=== PATIENT | female | born 1935 | race American Indian/Alaskan Native ===

== ENCOUNTER 2018-12-08 16:16 | Inpatient (IN) | payer MEDICARE ==
--- NOTE | 2018-12-08 17:00 | Emergency Department Report ---
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
[2018-12-08 17:36] LABS: Basophils # (Auto) 0.1 K/mm3 (0.0-0.1); Basophils % (Auto) 1.4 % (0.0-1.8); Eosinophils # (Auto) 0.1 K/mm3 (0.0-0.4); Eosinophils % (Auto) 1.4 % (0.0-4.3); Hematocrit 40.1 % (30.3-42.9); Hemoglobin 14.1 gm/dl (10.1-14.3); Lymphocytes # (Auto) 2.4 K/mm3 (1.2-5.4); Lymphocytes % (Auto) 32.1 % (13.4-35.0); Mean Corpuscular HGB Conc 35 % (30-34); Mean Corpuscular Volume 86 fl (79-97); Monocytes # (Auto) 0.8 K/mm3 (0.0-0.8); Monocytes % (Auto) 10.8 % (0.0-7.3); Platelet Count 339 K/mm3 (140-440); Red Blood Count 4.68 M/mm3 (3.65-5.03); Red Cell Distribution Width 16.2 % (13.2-15.2)
[2018-12-08 17:46] LABS: INR 0.96 (0.87-1.13)
[2018-12-08 17:57] LABS: Alanine Aminotransferase 8 units/L (7-56); Albumin 4.3 g/dL (3.9-5); BUN/Creatinine Ratio 34; Blood Urea Nitrogen 58 mg/dL (7-17); Calcium 9.6 mg/dL (8.4-10.2); Hemolysis Index 1
[2018-12-08] MEDS ORDERED: PEPCID PO ONE (17:59)
[2018-12-08] MEDS ORDERED: ALUM-MAG HYDROX-SIMETH 200-200-20MG/5ML PO ONE (17:59)
[2018-12-08] MEDS ORDERED: TYLENOL PO ONE (17:59)
[2018-12-08] MEDS ORDERED: NITROSTAT SL PRN (17:59)
[2018-12-08] MEDS ORDERED: CARAFATE PO ONE (17:59)
--- NOTE | 2018-12-08 18:00 | Emergency Department Report ---
ED Chest Pain HPI - General Chief Complaint: Dyspnea/Respdistress Stated Complaint: JON Time Seen by Provider: 12/08/18 16:52 Source: patient, EMS (ems notes not available at time of chart dictation), RN notes reviewed, old records reviewed Mode of arrival: Ambulatory Limitations: No Limitations - History of Present Illness Initial Comments: Primary care Dr.: Dr. Edouard Cardiology: Dr. Arauz Past medical history: Asthma, stroke, diabetes, hypertension, renal insufficiency, heart disease, stents 4. Chronic back pain, chronic arthritis, takes Plavix. This is an 83-year-old female. The patient is sent to the emergency room by her soda jerker. Patient complains of left-sided chest pain, shortness of breath, for a few weeks. She denies DVT, pulmonary embolus risk factors. Her chest pain is left-sided, aching, does not radiate anywhere, does not have exacerbating or relieving factors. She reports she initially presented to her primary care physician for these complaints, who initially advised emergency room presentation, but the patient declined, she was therefore given outpatient diuretics, including presumably Lasix, and metalozone. She reports compliance with these medications, and reports that she still feels short of breath. She also endorses chronic lumbosacral back pain, which has been present for years, she was previously receiving cortisone injections for this, but her pain specialist. This because she was having glycemic dysregulation. MD Complaint: chest pain -: Gradual Onset: during rest Pain Location: left chest Quality: aching Consistency: intermittent Improves With: nothing Worsens With: nothing Aspirin use within the Past 7 Days: (0) No (patient takes Plavix, not aspirin) - Related Data On Oral Contraceptives: No Home Medications Medication Instructions Recorded Confirmed Last Taken Cholecalciferol (Vitd3)/Vit K2 50,000 mg PO DAILY 12/09/18 12/09/18 12/08/18 19:00 Clonidine 0.1 mg PO BID 12/09/18 12/09/18 12/08/18 19:00 Coreg 12.5 mg PO BID 12/09/18 12/09/18 12/08/18 19:00 Folic Acid 1 mg PO DAILY 12/09/18 12/09/18 12/08/18 19:00 Lantus 60 units QAM 12/09/18 12/09/18 12/08/18 18:00 Metolazone 5 mg PO BID 12/09/18 12/09/18 12/08/18 19:00 Plavix 75 mg PO DAILY 12/09/18 12/09/18 12/08/18 19:00 Potassium 20 mg PO DAILY 12/09/18 12/09/18 12/08/18 19:00 Procardia Xl 30 mg PO DAILY 12/09/18 12/09/18 12/08/18 20:00 Symbicort 80-4.5 Mcg Inhaler 2 inhalation PO BID 12/09/18 12/09/18 12/08/18 20:00 Torsemide 20 mg PO BID 12/09/18 12/09/18 12/08/18 21:00 Trelegy Ellipta 100-62.5-25 2 mg PO DAILY 12/09/18 12/09/18 12/08/18 21:00 Allergies Allergy/AdvReac Type Severity Reaction Status Date / Time hydrocodone AdvReac Vomiting Verified 12/08/18 16:23 Heart Score - HEART Score History: Moderately suspicious EKG: Non-specific Age: > 65 Risk factors: > 3 risk factors or hx of atherosclerotic disease Troponin: < normal limit HEART Score: 6 - Critical Actions Critical Actions: 4-6 pts:12-16.6% risk of adverse cardiac event. Should be admitted ED Review of Systems ROS: Stated complaint: JON Other details as noted in HPI Constitutional: malaise. denies: fever Eyes: denies: eye discharge ENT: denies: epistaxis Respiratory: shortness of breath Cardiovascular: chest pain Musculoskeletal: back pain, arthralgia Skin: denies: lesions Neurological: weakness Psychiatric: anxiety ED Past Medical Hx - Past Medical History Hx Hypertension: Yes Hx CVA: Yes Hx Diabetes: Yes Hx Renal Disease: Yes Hx Asthma: Yes - Surgical History Hx Coronary Stent: Yes (x4) Hx Cholecystectomy: Yes Additional Surgical History: polps in throat, breast reduction, tubiligation - Social History Smoking Status: Never Smoker Substance Use Type: None - Medications Home Medications: Home Medications Medication Instructions Recorded Confirmed Last Taken Type Cholecalciferol (Vitd3)/Vit K2 50,000 mg PO DAILY 12/09/18 12/09/18 12/08/18 19:00 History Clonidine 0.1 mg PO BID 04/12/09/18 12/08/18 19:00 History Coreg 12.5 mg PO BID 12/09/18 12/09/18 12/08/18 19:00 History Folic Acid 1 mg PO DAILY 12/09/18 12/09/18 12/08/18 19:00 History Lantus 60 units QAM 12/09/18 12/09/18 12/08/18 18:00 History Metolazone 5 mg PO BID 12/09/18 12/09/18 12/08/18 19:00 History Plavix 75 mg PO DAILY 12/09/18 12/09/18 12/08/18 19:00 History Potassium 20 mg PO DAILY 12/09/18 12/09/18 12/08/18 19:00 History Procardia Xl 30 mg PO DAILY 12/09/18 12/09/18 12/08/18 20:00 History Symbicort 80-4.5 Mcg Inhaler 2 inhalation PO BID 12/09/18 12/09/18 12/08/18 20:00 History Torsemide 20 mg PO BID 12/09/18 12/09/18 12/08/18 21:00 History Trelegy Ellipta 100-62.5-25 2 mg PO DAILY 12/09/18 12/09/18 12/08/18 21:00 History ED Physical Exam - General Limitations: No Limitations General appearance: alert, in no apparent distress - Head Head exam: Present: atraumatic, normocephalic - Eye Eye exam: Present: normal appearance, EOMI. Absent: nystagmus - ENT ENT exam: Present: normal exam, normal orophraynx, mucous membranes moist, normal external ear exam - Neck Neck exam: Present: normal inspection, full ROM. Absent: tenderness, meningismus - Respiratory Respiratory exam: Present: decreased breath sounds. Absent: respiratory distress - Cardiovascular Cardiovascular Exam: Present: regular rate, normal rhythm, normal heart sounds. Absent: bradycardia, tachycardia, irregular rhythm, systolic murmur, diastolic murmur, rubs, gallop - GI/Abdominal GI/Abdominal exam: Present: soft. Absent: distended, tenderness, guarding, rebound, rigid, pulsatile mass - Extremities Exam Extremities exam: Present: normal inspection, full ROM, other (2+ pulses noted in the bilateral upper, lower extremities. Compartments soft. No long bony tenderness. The pelvis is stable.). Absent: calf tenderness - Back Exam Back exam: Present: normal inspection, full ROM. Absent: paraspinal tenderness, vertebral tenderness - Neurological Exam Neurological exam: Present: alert, other (Extraocular movements intact. Tongue midline. No facial droop. Facial sensation intact to light touch in the V1, V2, V3 distribution bilaterally. 5 and 5 strength in 4 extremities.. Sensation is intact to light touch in 4 extremities.). Absent: motor sensory deficit - Psychiatric Psychiatric exam: Present: normal affect, normal mood - Skin Skin exam: Present: warm, dry, intact, normal color. Absent: rash ED Course Vital Signs 12/08/18 12/08/18 12/08/18 16:59 18:00 18:14 Temperature 97.3 F L Pulse Rate 70 75 Respiratory 20 18 21 Rate Blood Pressure 110/91 O2 Sat by Pulse 97 Oximetry 12/08/18 12/08/18 12/08/18 18:15 18:30 18:46 Temperature Pulse Rate 75 68 65 Respiratory 17 17 12 Rate Blood Pressure 137/65 135/60 O2 Sat by Pulse 99 96 100 Oximetry 12/08/18 12/08/18 12/08/18 19:00 19:16 19:30 Temperature Pulse Rate 72 73 76 Respiratory 20 20 14 Rate Blood Pressure 131/59 131/59 129/61 O2 Sat by Pulse 99 99 97 Oximetry 12/08/18 12/08/18 12/08/18 19:50 20:00 20:10 Temperature Pulse Rate 58 L 69 63 Respiratory 13 11 L 14 Rate Blood Pressure 131/59 127/55 127/55 O2 Sat by Pulse 98 99 100 Oximetry 12/08/18 20:14 Temperature Pulse Rate Respiratory 18 Rate Blood Pressure O2 Sat by Pulse 96 Oximetry - Reevaluation(s) Reevaluation #1: 12/08/18 18:29 Differential diagnosis, including not limited to: GERD, gastritis, hiatal her opal, costochondritis, acute coronary syndrome, pulmonary embolus, pneumonia, mechanical back pain Assessment and plan: 83-year-old female, known history of stents, diabetes and hypertension, renal insufficiency with chest pain and shortness of breath. Patient clinically does not appear to be floridly fluid overloaded. She does not have significant crackles or rales. She is saturating at 100% on room air. X-ray of the chest suggest pulmonary vascular congestion. Has no pulmonary embolus or DVT risk factors, and is low risk by well's criteria. Patient has not recently had any cardiac risk stratification. Case discussed with covering soda jerker, Dr. Cade, who agrees to follow in consultation. D-dimer sent, we will admit the patient to the medical service for high risk cardiac risk stratification. Lasix ordered. Reevaluation #2: 12/08/18 19:02 we will defer to the inpatient team to follow up on v/q scan FERNANDO score - Fernando Score Age > 65: (1) Yes Aspirin use within the Past 7 Days: (0) No 3 or more CAD Risk Factors: (1) Yes 2 or more Angina events in past 24 hrs: (0) No Known CAD with more than 50% Stenosis: (0) No Elevated Cardiac Markers: (0) No ST Deviation Greater than 0.5mm: (0) No FERNANDO Score: 2 ED Medical Decision Making - Lab Data Result diagrams: 12/09/18 05:23 12/09/18 05:23 Vital Signs 12/08/18 16:59 Temperature 97.3 F L Pulse Rate 70 Respiratory 20 Rate Blood Pressure 110/91 O2 Sat by Pulse 97 Oximetry Lab Results 12/08/18 12/08/18 12/08/18 Range/Units 17:16 17:16 17:16 WBC 7.6 (4.5-11.0) K/mm3 RBC 4.68 (3.65-5.03) M/mm3 Hgb 14.1 (10.1-14.3) gm/dl Hct 40.1 (30.3-42.9) % MCV 86 (79-97) fl MCH 30 (28-32) pg MCHC 35 H (30-34) % RDW 16.2 H (13.2-15.2) % Plt Count 339 (140-440) K/mm3 Lymph % (Auto) 32.1 (13.4-35.0) % [place] % (Auto) 10.8 H (0.0-7.3) % Eos % (Auto) 1.4 (0.0-4.3) % Baso % (Auto) 1.4 (0.0-1.8) % Lymph # 2.4 (1.2-5.4) K/mm3 [place] # 0.8 (0.0-0.8) K/mm3 Eos # 0.1 (0.0-0.4) K/mm3 Baso # 0.1 (0.0-0.1) K/mm3 Seg Neutrophils % 54.3 (40.0-70.0) % Seg Neutrophils # 4.1 (1.8-7.7) K/mm3 PT 13.4 (12.2-14.9) Sec. INR 0.96 (0.87-1.13) APTT 27.0 (24.2-36.6) Sec. Sodium 138 (137-145) mmol/L Potassium 3.6 (3.6-5.0) mmol/L Chloride 93.4 L (98-107) mmol/L Carbon Dioxide 30 (22-30) mmol/L Anion Gap 18 mmol/L BUN 58 H (7-17) mg/dL Creatinine 1.7 H (0.7-1.2) mg/dL Estimated GFR 35 ml/min BUN/Creatinine Ratio 34 % Glucose 155 H (65-100) mg/dL Calcium 9.6 (8.4-10.2) mg/dL Total Bilirubin 0.30 (0.1-1.2) mg/dL AST 10 (5-40) units/L ALT 8 (7-56) units/L Alkaline Phosphatase 82 (35-129) units/L Troponin T < 0.010 (0.00-0.029) ng/mL NT-Pro-B Natriuret Pep (0-900) pg/mL Total Protein 8.3 H (6.3-8.2) g/dL Albumin 4.3 (3.9-5) g/dL Albumin/Globulin Ratio 1.1 % 12/08/18 Range/Units 17:16 WBC (4.5-11.0) K/mm3 RBC (3.65-5.03) M/mm3 Hgb (10.1-14.3) gm/dl Hct (30.3-42.9) % MCV (79-97) fl MCH (28-32) pg MCHC (30-34) % RDW (13.2-15.2) % Plt Count (140-440) K/mm3 Lymph % (Auto) (13.4-35.0) % [place] % (Auto) (0.0-7.3) % Eos % (Auto) (0.0-4.3) % Baso % (Auto) (0.0-1.8) % Lymph # (1.2-5.4) K/mm3 [place] # (0.0-0.8) K/mm3 Eos # (0.0-0.4) K/mm3 Baso # (0.0-0.1) K/mm3 Seg Neutrophils % (40.0-70.0) % Seg Neutrophils # (1.8-7.7) K/mm3 PT (12.2-14.9) Sec. INR (0.87-1.13) APTT (24.2-36.6) Sec. Sodium (137-145) mmol/L Potassium (3.6-5.0) mmol/L Chloride (98-107) mmol/L Carbon Dioxide (22-30) mmol/L Anion Gap mmol/L BUN (7-17) mg/dL Creatinine (0.7-1.2) mg/dL Estimated GFR ml/min BUN/Creatinine Ratio % Glucose (65-100) mg/dL Calcium (8.4-10.2) mg/dL Total Bilirubin (0.1-1.2) mg/dL AST (5-40) units/L ALT (7-56) units/L Alkaline Phosphatase (35-129) units/L Troponin T (0.00-0.029) ng/mL NT-Pro-B Natriuret Pep 585.6 (0-900) pg/mL Total Protein (6.3-8.2) g/dL Albumin (3.9-5) g/dL Albumin/Globulin Ratio % - EKG Data -: EKG Interpreted by Me EKG shows normal: sinus rhythm Rate: normal - EKG Data 12/08/18 18:28 EKG shows a sinus rhythm, rightward axis, right bundle branch block, QTC 497 ms, sinus arrhythmia, low voltage, abnormal EKG, as is not consistent with ST elevation myocardial infarction. There is no prior for comparison. - Radiology Data Radiology results: report reviewed, image reviewed interpreted by me: X-ray of the chest shows pulmonary vascular congestion. Print Report Referring Physician: LILIANA TAN Patient Name: ARLIN VEGA Date of : 1935 Sex: Female Report Date: 2018-12-08 Report Status: Finalized Findings [facility] [address] [place] [address] XRay Report Signed Patient: ARLIN VEGA MR#: [id number] : 1935 Acct:[id number] Age/Sex: 83 / F ADM Date: 12/08/18 Loc: ED Attending Dr: Ordering Physician: LILIANA TAN MD Date of Service: 12/08/18 Procedure(s): XR chest 1V ap Accession Number(s): [id number] cc: LILIANA TAN MD Fluoro Time In Minutes: PROCEDURE: XR CHEST 1V AP HISTORY: cp dyspnea FINDINGS: Single frontal view of the chest was acquired. There is cardiomegaly and mild pulmonary edema. There is no acute consolidative pulmonary infiltrate. IMPRESSION: Cardiomegaly and mild pulmonary edema This document is electronically signed by Luis Manuel White MD., December 08 2018 06:31:13 PM ET Transcribed By: KAREN Dictated By: LUIS MANUEL WHITE MD Electronically Authenticated By: LUIS MANUEL WHITE MD Signed Date/Time: 12/08/18 1833 Critical care attestation.: If time is entered above; I have spent that time in minutes in the direct care of this critically ill patient, excluding procedure time. ED Disposition Clinical Impression: History of chest pain, History of shortness of breath Disposition: 09 OP ADMIT IP TO THIS HOSP Is pt being admited?: Yes Does the pt Need Aspirin: Yes Condition: Good
[2018-12-08] MEDS ORDERED: LASIX IV ONE (18:28)
[2018-12-08] MEDS ORDERED: BABY ASPIRIN PO ONE (18:32)
--- NOTE | 2018-12-08 18:33 | XRay Report ---
PROCEDURE: XR CHEST 1V AP HISTORY: cp dyspnea FINDINGS: Single frontal view of the chest was acquired. There is cardiomegaly and mild pulmonary eli ma. There is no acute consolidative pulmonary infiltrate. IMPRESSION: Cardiomegaly and mild pulmonary edema This document is electronically signed by Luis Manuel White MD., December 08 2018 06:31:13 PM ET
--- NOTE | 2018-12-08 21:54 | Nuclear Medicine Report ---
PROCEDURE: Nuclear medicine ventilation and perfusion lung scan. TECHNIQUE: Ventilation imaging was done in the posterior projection using 12.2 mCi of xenon-133 gas. Perfusion imaging was done in multiple projections using 5.2 mCi of technetium 90 9M MAA. HISTORY: Chest pain, dyspnea. COMPARISONS: Comparison chest radiograph 12/08/2018. FINDINGS: There is symmetrical, homogeneous ventilation bilaterally. There is no trapping of xenon gas during t he washout phase of the study. The perfusion images are also homogeneous. The lung scan is normal and caries an extremely low probability of pulmonary embolism. IMPRESSION: Normal lung scan. This document is electronically signed by Myles Noland MD., December 08 2018 09:52:33 PM ET
--- NOTE | 2018-12-08 21:55 | History and Physical Report ---
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 Her chest pain is left- sided, aching, does not radiate anywhere, does not have exacerbating or relieving factors. She reports she initially presented to her primary care physician for these complaints, who initially advised emergency room presentation, but the patient declined, she was therefore given outpatient diuretics, Also SOB on minimal exertion.Orthopnea present. Past Medical History Hypertension: Yes CVA: Yes Diabetes: Yes Renal Disease: Yes Asthma: Yes Peripheral neuropathy Surgical History Hx Coronary Stent: Yes (x4) Hx Cholecystectomy: Yes Additional Surgical History: polyps in throat, breast reduction, tubiligation Social History Smoking Status: Never Smoker Substance Use Type: None Review of systems ROS: Stated complaint: JON Other details as noted in HPI Constitutional: malaise. denies: fever Eyes: denies: eye discharge ENT: denies: epistaxis Respiratory: shortness of breath Cardiovascular: chest pain Musculoskeletal: back pain, arthralgia Skin: denies: lesions Neurological: weakness Psychiatric: anxiety Medications and Allergies Allergies Allergy/AdvReac Type Severity Reaction Status Date / Time hydrocodone AdvReac Vomiting Verified 12/08/18 16:23 Home Medications Medication Instructions Recorded Confirmed Last Taken Type Unobtainable 12/08/18 12/08/18 Unknown History Active Meds: Active Medications Nitroglycerin (Nitrostat) 0.4 mg SL .Q5MIN PRN PRN Reason: Chest Pain Exam - Constitutional Vitals: Temp Pulse Resp BP Pulse Ox 97.3 F L 63 14 127/55 100 12/08/18 16:59 12/08/18 20:10 12/08/18 20:10 12/08/18 20:10 12/08/18 20:10 General appearance: Present: no acute distress, well-nourished - EENT Eyes: Present: PERRL ENT: hearing intact, clear oral mucosa - Neck Neck: Present: supple, normal ROM - Respiratory Respiratory effort: normal Respiratory: bilateral: CTA - Cardiovascular Heart rate: 68 Rhythm: regular Heart Sounds: Present: S1 & S2. Absent: rub, click - Extremities Extremities: no ischemia, pulses intact, pulses symmetrical, No edema Peripheral Pulses: within normal limits - Abdominal General gastrointestinal: Present: soft, non-tender, non-distended, normal bowel sounds Female genitourinary: Present: normal - Rectal Rectal Exam: deferred - Integumentary Integumentary: Present: clear, warm, dry - Musculoskeletal Musculoskeletal: gait normal, strength equal bilaterally - Psychiatric Psychiatric: appropriate mood/affect, intact judgment & insight - Neurologic Neurologic: CNII-XII intact, moves all extremities - Allied Health Allied health notes reviewed: nursing, case management Results - Labs CBC & Chem 7: 12/09/18 05:23 12/09/18 05:23 Labs: Laboratory Last Values WBC 7.6 K/mm3 (4.5-11.0) 12/08/18 17:16 RBC 4.68 M/mm3 (3.65-5.03) 12/08/18 17:16 Hgb 14.1 gm/dl (10.1-14.3) 12/08/18 17:16 Hct 40.1 % (30.3-42.9) 12/08/18 17:16 MCV 86 fl (79-97) 12/08/18 17:16 MCH 30 pg (28-32) 12/08/18 17:16 MCHC 35 % (30-34) H 12/08/18 17:16 RDW 16.2 % (13.2-15.2) H 12/08/18 17:16 Plt Count 339 K/mm3 (140-440) 12/08/18 17:16 Lymph % (Auto) 32.1 % (13.4-35.0) 12/08/18 17:16 [place] % (Auto) 10.8 % (0.0-7.3) H 12/08/18 17:16 Eos % (Auto) 1.4 % (0.0-4.3) 12/08/18 17:16 Baso % (Auto) 1.4 % (0.0-1.8) 12/08/18 17:16 Lymph # 2.4 K/mm3 (1.2-5.4) 12/08/18 17:16 [place] # 0.8 K/mm3 (0.0-0.8) 12/08/18 17:16 Eos # 0.1 K/mm3 (0.0-0.4) 12/08/18 17:16 Baso # 0.1 K/mm3 (0.0-0.1) 12/08/18 17:16 Seg Neutrophils % 54.3 % (40.0-70.0) 12/08/18 17:16 Seg Neutrophils # 4.1 K/mm3 (1.8-7.7) 12/08/18 17:16 PT 13.4 Sec. (12.2-14.9) 12/08/18 17:16 INR 0.96 (0.87-1.13) 12/08/18 17:16 APTT 27.0 Sec. (24.2-36.6) 12/08/18 17:16 D-Dimer 1048 ng/mlDDU (0-234) H 12/08/18 18:12 Sodium 138 mmol/L (137-145) 12/08/18 17:16 Potassium 3.6 mmol/L (3.6-5.0) 12/08/18 17:16 Chloride 93.4 mmol/L (98-107) L 12/08/18 17:16 Carbon Dioxide 30 mmol/L (22-30) 12/08/18 17:16 Anion Gap 18 mmol/L 12/08/18 17:16 BUN 58 mg/dL (7-17) H 12/08/18 17:16 Creatinine 1.7 mg/dL (0.7-1.2) H 12/08/18 17:16 Estimated GFR 35 ml/min 12/08/18 17:16 BUN/Creatinine Ratio 34 % 12/08/18 17:16 Glucose 155 mg/dL (65-100) H 12/08/18 17:16 Calcium 9.6 mg/dL (8.4-10.2) 12/08/18 17:16 Total Bilirubin 0.30 mg/dL (0.1-1.2) 12/08/18 17:16 AST 10 units/L (5-40) 12/08/18 17:16 ALT 8 units/L (7-56) 12/08/18 17:16 Alkaline Phosphatase 82 units/L (35-129) 12/08/18 17:16 Troponin T < 0.010 ng/mL (0.00-0.029) 12/08/18 17:16 NT-Pro-B Natriuret Pep 585.6 pg/mL (0-900) 12/08/18 17:16 Total Protein 8.3 g/dL (6.3-8.2) H 12/08/18 17:16 Albumin 4.3 g/dL (3.9-5) 12/08/18 17:16 Albumin/Globulin Ratio 1.1 % 12/08/18 17:16 Short CBC 12/08/18 12/09/18 Range/Units 17:16 05:23 WBC 7.6 5.3 (4.5-11.0) K/mm3 Hgb 14.1 13.3 (10.1-14.3) gm/dl Hct 40.1 39.5 (30.3-42.9) % Plt Count 339 330 (140-440) K/mm3 BMP 12/08/18 12/09/18 17:16 05:23 Sodium 138 135 L Potassium 3.6 3.3 L Chloride 93.4 L 92.3 L Carbon Dioxide 30 26 BUN 58 H 58 H Creatinine 1.7 H 1.6 H Glucose 155 H 415 H Calcium 9.6 9.1 Cardiac Enzymes 12/08/18 12/08/18 12/08/18 Range/Units 17:16 21:53 22:50 Troponin T < 0.010 < 0.010 < 0.010 (0.00-0.029) ng/mL 12/09/18 Range/Units 05:23 Troponin T < 0.010 (0.00-0.029) ng/mL Liver Function 12/08/18 12/09/18 Range/Units 17:16 05:23 Total Bilirubin 0.30 0.20 (0.1-1.2) mg/dL AST 10 12 (5-40) units/L ALT 8 9 (7-56) units/L Alkaline Phosphatase 82 82 (35-129) units/L Albumin 4.3 3.8 L (3.9-5) g/dL - Imaging and Cardiology EKG: report reviewed (NSR 68/min RBBB) Chest x-ray: report reviewed (Cardimegaly and mild pulmonary edema) Imaging and Cardiology: V/q Scan IMPRESSION: Normal lung scan. Assessment and Plan Advance Directives: Yes (Full code) VTE prophylaxis?: Chemical - Patient Problems (1) Acute exacerbation of CHF (congestive heart failure) Current Visit: Yes Status: Acute Qualifiers: Heart failure type: combined systolic and diastolic Qualified Code(s): I50.43 - Acute on chronic combined systolic (congestive) and diastolic (congestive) heart failure Plan to address problem: IV Lasix for now Daily weights and I?O 's ECHO for EF Cardiology consult (2) JANEE (acute kidney injury) Current Visit: Yes Status: Acute Plan to address problem: Nephrolgy consulted b/c patient is also initiated on IV Lasix (3) Chest pain Current Visit: Yes Status: Acute Plan to address problem: t pain r/o MA protocol seriial Troponins Lexiscan in AM V/q scan negative (4) HTN (hypertension) Current Visit: Yes Status: Chronic Qualifiers: Hypertension type: essential hypertension Qualified Code(s): I10 - Esse ntial (primary) hypertension Plan to address problem: Cont antihypertensives (5) Peripheral neuropathy Current Visit: Yes Status: Chronic Qualifiers: Peripheral neuropathy type: polyneuropathy, unspecified Qualified Code(s): G62.9 - Polyneuropathy, unspecified Plan to address problem: Gabapentin (6) T2DM (type 2 diabetes mellitus) Current Visit: Yes Status: Chronic Qualifiers: Diabetes mellitus 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
[2018-12-08] MEDS ORDERED: ZOFRAN IV PRN (21:56)
[2018-12-08] MEDS ORDERED: DILAUDID IV PRN (21:56)
[2018-12-08] MEDS ORDERED: SODIUM CHLORIDE FLUSH SYRINGE 10 ML IV PRN (21:56)
[2018-12-08] MEDS ORDERED: TYLENOL PO PRN (21:56)
[2018-12-08] MEDS: SODIUM CHLORIDE FLUSH SYRINGE 10 ML IV SCH (22:00)
[2018-12-08] MEDS ORDERED: PEPCID PO SCH (22:00)
[2018-12-09] MEDS: PERCOCET 5/325 PO PRN (05:42)
[2018-12-09 06:23] LABS: Basophils % (Auto) 0.8 % (0.0-1.8); Hematocrit 39.5 % (30.3-42.9); Hemoglobin 13.3 gm/dl (10.1-14.3); Lymphocytes % (Auto) 36.6 % (13.4-35.0); Mean Corpuscular HGB Conc 34 % (30-34); Mean Corpuscular Volume 87 fl (79-97); Monocytes % (Auto) 9.3 % (0.0-7.3); Platelet Count 330 K/mm3 (140-440); Red Blood Count 4.53 M/mm3 (3.65-5.03); Red Cell Distribution Width 15.9 % (13.2-15.2)
[2018-12-09 06:24] LABS: Eosinophils # (Auto) 0.1 K/mm3 (0.0-0.4); Lymphocytes # (Auto) 1.9 K/mm3 (1.2-5.4); Monocytes # (Auto) 0.5 K/mm3 (0.0-0.8)
[2018-12-09 06:41] LABS: Alanine Aminotransferase 9 units/L (7-56); Albumin 3.8 g/dL (3.9-5); BUN/Creatinine Ratio 36; Blood Urea Nitrogen 58 mg/dL (7-17); Calcium 9.1 mg/dL (8.4-10.2); Hemolysis Index 20
--- NOTE | 2018-12-09 08:32 | Consultation ---
History of Present Illness - Reason for Consult Consult date: 12/09/18 acute renal failure Medications and Allergies Allergies Allergy/AdvReac Type Severity Reaction Status Date / Time hydrocodone AdvReac Vomiting Verified 12/08/18 16:23 Home Medications Medication Instructions Recorded Confirmed Last Taken Type Unobtainable 12/08/18 12/08/18 Unknown History Active Meds: Active Medications Acetaminophen (Tylenol) 650 mg PO Q4H PRN PRN Reason: Pain MILD(1-3)/Fever >100.5/BECKER Carvedilol (Coreg) 3.125 mg PO BID [facility] Famotidine (Pepcid) 10 mg PO BID [facility] Furosemide (Lasix) 40 mg IV QDAY [facility] Gabapentin (Neurontin) 100 mg PO Q8HR [facility] Hydromorphone HCl (Dilaudid) 0.5 mg IV Q3H PRN PRN Reason: Pain , Severe (7-10) Insulin Glargine (Lantus) 15 units SUB-Q QHS [facility] Insulin Human Lispro (Humalog) 0 unit SUB-Q ACHS [facility]; Protocol Insulin Human Lispro (Humalog) 6 unit SUB-Q AC [facility] Losartan Potassium (Cozaar) 100 mg PO QDAY [facility] Nitroglycerin (Nitrostat) 0.4 mg SL .Q5MIN PRN PRN Reason: Chest Pain Ondansetron HCl (Zofran) 4 mg IV Q8H PRN PRN Reason: Nausea And Vomiting Oxycodone/Acetaminophen (Percocet 5/325) 1 tab PO Q6H PRN PRN Reason: Pain, Moderate (4-6) Last Admin: 12/09/18 05:42 Dose: 1 tab Documented by: Potassium Chloride (K-Dur) 40 meq PO QDAY [facility] Sodium Chloride (Sodium Chloride Flush Syringe 10 Ml) 10 ml IV BID [facility] Last Admin: 12/08/18 22:00 Dose: 10 ml Documented by: Sodium Chloride (Sodium Chloride Flush Syringe 10 Ml) 10 ml IV PRN PRN PRN Reason: LINE FLUSH Exam - Vital Signs Vital signs: Vital Signs Temp Pulse Resp BP Pulse Ox 97.3 F L 70 20 110/91 97 12/08/18 16:59 12/08/18 16:59 12/08/18 16:59 12/08/18 16:59 12/08/18 16:59 Results - Lab Results 12/09/18 05:23 12/09/18 05:23 Most recent lab results Calcium 9.1 mg/dL (8.4-10.2) 12/09/18 05:23
[2018-12-09] MEDS: HumaLOG SUB-Q SCH ×7 (08:43→22:01)
[2018-12-09] MEDS ORDERED: LASIX IV SCH (10:00)
[2018-12-09] MEDS ORDERED: K-DUR PO SCH (10:00)
--- NOTE | 2018-12-09 10:16 | Consultation ---
History of Present Illness Consult date: 12/09/18 Requesting physician: POP CONROY Consult reason: congestive heart failure History of present illness: The pt is an 83 YO female with a past medical history of CAD s/p PCI, HTN, HLP, DM, CKD, asthma, sleep apnea. She is regularly followed in our office by Dr. aFye. She presented to our office yesterday for unscheduled visit and was seen by Dr. Glen Arauz. She c/o dyspnea and BLE edema and was referred to [facility] for management of acutely decompensated HF. She states that for the past several weeks, she has been experiencing progressively worsening and BLE swelling. She reports about 1 week ago, she received one dose of IV lasix from her PCP and lost about 10 lbs but her symptoms persisted. She also c/o an intermittent left- sided tugging chest discomfort. [facility] 08/2007 with PCI of RCA. Lexiscan MPI stress test done 09/2016 was negative. Echo done 02/2018 showed normal LV function, no significant abnormalities. Past History Past Medical History: CAD, diabetes, hypertension, hyperlipidemia, other (asthma; tutu) Past Surgical History: PTCA Social history: denies: smoking, alcohol abuse, prescription drug abuse Medications and Allergies Allergies Allergy/AdvReac Type Severity Reaction Status Date / Time hydrocodone AdvReac Vomiting Verified 12/08/18 16:23 Home Medications Medication Instructions Recorded Confirmed Last Taken Type Lantus 60 units QAM 12/09/18 12/09/18 Unknown History Active Meds: Active Medications Acetaminophen (Tylenol) 650 mg PO Q4H PRN PRN Reason: Pain MILD(1-3)/Fever >100.5/BECKER Carvedilol (Coreg) 3.125 mg PO BID [facility] Famotidine (Pepcid) 10 mg PO BID [facility] Furosemide (Lasix) 40 mg IV QDAY [facility] Gabapentin (Neurontin) 100 mg PO Q8HR [facility] Hydromorphone HCl (Dilaudid) 0.5 mg IV Q3H PRN PRN Reason: Pain , Severe (7-10) Insulin Glargine (Lantus) 15 units SUB-Q QHS [facility] Insulin Human Lispro (Humalog) 0 unit SUB-Q ACHS [facility]; Protocol Last Admin: 12/09/18 08:43 Dose: 6 unit Documented by: Insulin Human Lispro (Humalog) 6 unit SUB-Q AC [facility] Last Admin: 12/09/18 08:43 Dose: 6 unit Documented by: Losartan Potassium (Cozaar) 100 mg PO QDAY [facility] Nitroglycerin (Nitrostat) 0.4 mg SL .Q5MIN PRN PRN Reason: Chest Pain Ondansetron HCl (Zofran) 4 mg IV Q8H PRN PRN Reason: Nausea And Vomiting Oxycodone/Acetaminophen (Percocet 5/325) 1 tab PO Q6H PRN PRN Reason: Pain, Moderate (4-6) Last Admin: 12/09/18 05:42 Dose: 1 tab Documented by: Potassium Chloride (K-Dur) 40 meq PO QDAY [facility] Sodium Chloride (Sodium Chloride Flush Syringe 10 Ml) 10 ml IV BID [facility] Last Admin: 12/08/18 22:00 Dose: 10 ml Documented by: Sodium Chloride (Sodium Chloride Flush Syringe 10 Ml) 10 ml IV PRN PRN PRN Reason: LINE FLUSH Review of Systems Constitutional: weight gain, no fever, no chills, no sweats Ears, nose, mouth and throat: no ear pain, no nose pain, no sinus pressure, no sinus pain Cardiovascular: chest pain, orthopnea, edema, shortness of breath, dyspnea on exertion, leg edema, no palpitations, no rapid/irregular heart beat, no syncope, no lightheadedness Respiratory: shortness of breath, dyspnea on exertion, no cough, no congestion, no wheezing, no pain on inspiration Gastrointestinal: no abdominal pain, no nausea, no vomiting, no diarrhea, no constipation, no change in bowel habits Genitourinary Female: no pelvic pain, no flank pain, no dysuria, no urinary frequency, no urgency Musculoskeletal: no neck stiffness, no neck pain, no shooting arm pain, no arm numbness/tingling, no low back pain, no shooting leg pain Integumentary: no rash, no pruritis, no redness, no sores, no wounds Neurological: no head injury, no paralysis, no weakness, no parathesias, no numbness, no tingling, no seizures, no syncope Psychiatric: no anxiety Endocrine: no cold intolerance, no heat intolerance Hematologic/Lymphatic: no easy bruising, no easy bleeding Allergic/Immunologic: no urticaria, no wheezing Physical Examination Vital Signs Temp Pulse Resp BP Pulse Ox 97.3 F L 70 20 110/91 97 12/08/18 16:59 12/08/18 16:59 12/08/18 16:59 12/08/18 16:59 12/08/18 16:59 General appearance: no acute distress HEENT: Positive: PERRL, Normocephaly, Mucus Membranes Moist Neck: Positive: neck supple, trachea midline Cardiac: Positive: Reg Rate and Rhythm, S1/S2 Lungs: Positive: Decreased Breath Sounds Neuro: Positive: Grossly Intact Abdomen: Positive: Soft. Negative: Tender Skin: Negative: Rash Musculoskeletal: No Pain Extremities: Present: edema (trace BLE) Results 12/09/18 05:23 12/09/18 05:23 Cardiac Enzymes 12/08/18 12/09/18 Range/Units 17:16 05:23 AST 10 12 (5-40) units/L Coagulation 12/08/18 Range/Units 17:16 PT 13.4 (12.2-14.9) Sec. INR 0.96 (0.87-1.13) APTT 27.0 (24.2-36.6) Sec. CBC 12/08/18 12/09/18 Range/Units 17:16 05:23 WBC 7.6 5.3 (4.5-11.0) K/mm3 RBC 4.68 4.53 (3.65-5.03) M/mm3 Hgb 14.1 13.3 (10.1-14.3) gm/dl Hct 40.1 39.5 (30.3-42.9) % Plt Count 339 330 (140-440) K/mm3 Lymph # 2.4 1.9 (1.2-5.4) K/mm3 [place] # 0.8 0.5 (0.0-0.8) K/mm3 Eos # 0.1 0.1 (0.0-0.4) K/mm3 Baso # 0.1 0.0 (0.0-0.1) K/mm3 Comprehensive Metabolic Panel 12/08/18 12/09/18 Range/Units 17:16 05:23 Sodium 138 135 L (137-145) mmol/L Potassium 3.6 3.3 L (3.6-5.0) mmol/L Chloride 93.4 L 92.3 L (98-107) mmol/L Carbon Dioxide 30 26 (22-30) mmol/L BUN 58 H 58 H (7-17) mg/dL Creatinine 1.7 H 1.6 H (0.7-1.2) mg/dL Glucose 155 H 415 H (65-100) mg/dL Calcium 9.6 9.1 (8.4-10.2) mg/dL AST 10 12 (5-40) units/L ALT 8 9 (7-56) units/L Alkaline Phosphatase 82 82 (35-129) units/L Total Protein 8.3 H 7.7 (6.3-8.2) g/dL Albumin 4.3 3.8 L (3.9-5) g/dL - Imaging and Cardiology Echo: report reviewed (02/2018 showed normal LV function, no significant abnormalities. ) Cardiac cath: report reviewed (08/2007 with PCI of RCA. ) EKG: report reviewed, image reviewed EKG interpretations - Telemetry EKG Rhythm: Sinus Rhythm - EKG Sinus rhythms and dysrhythmias: sinus rhythm Assessment and Plan Cont present cardiac management. Nephrology consultation pending. F/u echo. Plan for lexiscan MPI stress test in AM. NPO after MN. The patient has been seen in conjunction with Dr. Glen Arauz who agrees with the assessment and plan of care. - Patient Problems (1) Acute heart failure with preserved ejection fraction Current Visit: Yes Status: Acute (2) Chest pain Current Visit: Yes Status: Acute (3) CAD (coronary artery disease) Current Visit: Yes Status: Chronic (4) Stented coronary artery Current Visit: Yes Status: Chronic (5) HTN (hypertension) Current Visit: Yes Status: Chronic Qualifiers: Hypertension type: essential hypertension Qualified Code(s): I10 - Essential (primary) hypertension (6) Hyperlipemia Current Visit: Yes Status: Chronic (7) T2DM (type 2 diabetes mellitus) Current Visit: Yes Status: Chronic Qualifiers: Diabetes mellitus retirement insulin 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
[2018-12-09] MEDS ORDERED: COREG PO SCH ×3 (10:30→22:00)
[2018-12-09] MEDS ORDERED: COZAAR PO SCH (11:00)
[2018-12-09] MEDS: NEURONTIN PO SCH ×3 (11:03→22:00)
[2018-12-09] MEDS: K-DUR PO SCH (11:14)
[2018-12-09] MEDS: SODIUM CHLORIDE FLUSH SYRINGE 10 ML IV SCH ×2 (11:15→22:01)
[2018-12-09] MEDS: PEPCID PO SCH ×2 (11:15→22:00)
[2018-12-09] MEDS ORDERED: PROCARDIA XL PO SCH (12:00)
--- NOTE | 2018-12-09 14:51 | Progress Note ---
Assessment and Plan / Acute exacerbation of CHF (congestive heart failure) IV Lasix for now Daily weights and I?O 's ECHO for EF Cardiology consult / JANEE (acute kidney injury) Nephrolgy consulted b/c patient is also initiated on IV Lasix Monitor cr level / Chest pain, likely musculoskeletal chest pain r/o IL protocol serial Troponins Lexiscan in AM V/q scan negative /Hypokalemia, replete k /HTN (hypertension) Cont antihypertensives home dose / Peripheral neuropathy cont Gabapentin / T2DM (type 2 diabetes mellitus) Initiated on Lantus and Humalog AC Hba1c high / DVT prophylaxis: On Lovenox brief history: 83-year-old female sent to the emergency room by her supply clerk for left-sided chest pain, shortness of breath, for a few weeks. Subjective Date of service: 12/09/18 Interval history: patient seen and examined states breathing improved and her swelling getting down too Stress test plannned for tomorrow c/o left sided chest wall pain She is refusing humalog insulin Objective - Constitutional Vitals: Vital Signs - 12hr 12/09/18 12/09/18 12/09/18 04:15 07:41 07:55 Temperature 97.6 F 98.3 F Pulse Rate 43 L 72 68 Respiratory 20 20 Rate Blood Pressure 133/55 158/71 O2 Sat by Pulse 97 95 Oximetry 12/09/18 12/09/18 12/09/18 11:14 11:17 11:35 Temperature 98.7 F Pulse Rate 68 68 52 L Respiratory 20 Rate Blood Pressure 158/71 158/71 166/59 O2 Sat by Pulse 91 Oximetry General appearance: Present: no acute distress, obese - EENT Eyes: PERRL, EOM intact ENT: hearing intact, clear oral mucosa Ears: bilateral: normal - Neck Neck: supple, normal ROM - Respiratory Respiratory effort: normal Respiratory: bilateral: CTA - Cardiovascular Rhythm: other (left chest wall tenderness) Heart Sounds: Present: S1 & S2. Absent: gallop, rub Extremities: pulses intact, No edema, normal color, Full ROM - Gastrointestinal General gastrointestinal: Present: soft, non-tender, non-distended, normal bowel sounds - Integumentary Integumentary: clear, warm, dry - Musculoskeletal Musculoskeletal: generalized weakness - Neurologic Neurologic: moves all extremities - Psychiatric Psychiatric: memory intact, appropriate mood/affect, intact judgment & insight - Labs CBC & Chem 7: 12/09/18 05:23 12/10/18 04:56 Labs: Abnormal lab results 12/08/18 12/08/18 12/08/18 Range/Units 17:16 17:16 17:16 MCHC 35 H (30-34) % RDW 16.2 H (13.2-15.2) % Lymph % (Auto) (13.4-35.0) % [place] % (Auto) 10.8 H (0.0-7.3) % D-Dimer (0-234) ng/mlDDU Sodium (137-145) mmol/L Potassium (3.6-5.0) mmol/L Chloride 93.4 L (98-107) mmol/L BUN 58 H (7-17) mg/dL Creatinine 1.7 H (0.7-1.2) mg/dL Glucose 155 H (65-100) mg/dL POC Glucose (70-105) Hemoglobin A1c 8.4 H (4-6) % Total Protein 8.3 H (6.3-8.2) g/dL Albumin (3.9-5) g/dL 12/08/18 12/09/18 12/09/18 Range/Units 18:12 05:23 05:23 MCHC (30-34) % RDW 15.9 H (13.2-15.2) % Lymph % (Auto) 36.6 H (13.4-35.0) % [place] % (Auto) 9.3 H (0.0-7.3) % D-Dimer 1048 H (0-234) ng/mlDDU Sodium 135 L (137-145) mmol/L Potassium 3.3 L (3.6-5.0) mmol/L Chloride 92.3 L (98-107) mmol/L BUN 58 H (7-17) mg/dL Creatinine 1.6 H (0.7-1.2) mg/dL Glucose 415 H (65-100) mg/dL POC Glucose (70-105) Hemoglobin A1c (4-6) % Total Protein (6.3-8.2) g/dL Albumin 3.8 L (3.9-5) g/dL 12/09/18 12/09/18 Range/Units 07:35 12:50 MCHC (30-34) % RDW (13.2-15.2) % Lymph % (Auto) (13.4-35.0) % [place] % (Auto) (0.0-7.3) % D-Dimer (0-234) ng/mlDDU Sodium (137-145) mmol/L Potassium (3.6-5.0) mmol/L Chloride (98-107) mmol/L BUN (7-17) mg/dL Creatinine (0.7-1.2) mg/dL Glucose (65-100) mg/dL POC Glucose 338 H 189 H (70-105) Hemoglobin A1c (4-6) % Total Protein (6.3-8.2) g/dL Albumin (3.9-5) g/dL
[2018-12-09 16:59] LABS: Bacteria,Urine 1+ /HPF (Negative); Bilirubin,Urine NEG (Negative); Blood,Urine NEG (Negative); Color,Urine Straw (Yellow); Protein,Urine <15 mg/dL mg/dL (Negative); Urobilinogen,Urine < 2.0 mg/dL (<2.0)
[2018-12-09 17:03] LABS: Creatinine,Urine 47.7 mg/dL (0.1-20.0); Protein/Creatinine Ratio,Urine 0.25
[2018-12-09] MEDS: LIDODERM 5% TD SCH (17:53)
--- NOTE | 2018-12-09 21:31 | Ultrasound Report ---
PROCEDURE: US RENAL BILAT HISTORY: Acute renal failure. FINDINGS: Real-time ultrasound of the kidneys was performed. The right kidney measures 9.6 x 4.8 x 5.5 cm and the left kidney 9.8 x 5.6 x 4.9 cm. Renal cortical t hickness was normal bilaterally at 1.8 cm. No cyst, mass, stone or hydronephrosis is seen. Renal cortical echotexture is mildly increased normal which could represent acute renal disease. IMPRESSION: The kidneys appear normal in size Renal cortical echotexture is mildly increased bilaterally consistent with acute renal disease This document is electronically signed by Luis Manuel White MD., December 09 2018 09:29:34 PM ET
[2018-12-09] MEDS ORDERED: LANTUS SUB-Q SCH (22:00)
[2018-12-10] MEDS: PERCOCET 5/325 PO PRN ×2 (04:14→12:38)
[2018-12-10 05:48] LABS: Calcium 8.5 mg/dL (8.4-10.2)
[2018-12-10] MEDS: NEURONTIN PO SCH ×3 (05:57→14:36)
[2018-12-10] MEDS ORDERED: LEXISCAN IV ONE ×2 (08:13→08:14)
[2018-12-10] MEDS: HumaLOG SUB-Q SCH ×4 (08:16→13:56)
[2018-12-10] MEDS ORDERED: VILANTEROL PO SCH (10:00)
[2018-12-10] MEDS ORDERED: LEVAQUIN 500MG/100ML 500 MG/100 ML BAG IV SCH (10:00)
[2018-12-10] MEDS ORDERED: NON-FORMULARY (Metolazone 5 MG) PO SCH (10:00)
[2018-12-10] MEDS ORDERED: NON-FORMULARY (Coreg 12.5 MG) PO SCH (10:00)
[2018-12-10] MEDS ORDERED: FOLVITE PO SCH (10:00)
[2018-12-10] MEDS ORDERED: POTASSIUM 20 MG PO SCH (10:00)
[2018-12-10] MEDS ORDERED: INSULIN GLARGINE SQ SCH (10:00)
[2018-12-10] MEDS ORDERED: PROCARDIA 30 MG PO SCH (10:00)
[2018-12-10] MEDS ORDERED: SYMBICORT PO SCH (10:00)
[2018-12-10] MEDS ORDERED: TORSEMIDE 20 MG PO SCH (10:00)
[2018-12-10] MEDS ORDERED: LANTUS SUB-Q SCH (10:00)
[2018-12-10] MEDS ORDERED: UMECLIDINIUM PO SCH (10:00)
[2018-12-10] MEDS ORDERED: COREG PO SCH (10:00)
[2018-12-10] MEDS ORDERED: NON-FORMULARY (Plavix 75 MG) PO SCH (10:00)
[2018-12-10] MEDS ORDERED: NON-FORMULARY (Folic Acid 1 MG) PO SCH (10:00)
[2018-12-10] MEDS ORDERED: CHOLECALCIFEROL PO SCH (10:00)
[2018-12-10] MEDS ORDERED: FLUTICASONE FUROATE PO SCH (10:00)
[2018-12-10] MEDS ORDERED: VIT K2 PO SCH (10:00)
[2018-12-10] MEDS ORDERED: BABY ASPIRIN PO SCH (10:00)
[2018-12-10] MEDS ORDERED: PLAVIX PO SCH (11:00)
[2018-12-10] MEDS ORDERED: PROCARDIA XL PO SCH (11:00)
--- NOTE | 2018-12-10 11:16 | Progress Note ---
Assessment and Plan s/p lexiscan MPI stress test this AM which was negative. TTE reviewed, no significant abnormalities. Currently stable cardiac status. Pt may discharge home from cardiology standpoint on home cardiac regimen. Recommend pt follow up in our office with Dr. Faye within 3-5 days of hospital discharge ([phone]). The patient has been seen in conjunction with Dr. Glen Arauz who agrees with the assessment and plan of care. - Patient Problems (1) Acute heart failure with preserved ejection fraction Current Visit: Yes Status: Acute (2) Chest pain Current Visit: Yes Status: Acute (3) CAD (coronary artery disease) Current Visit: Yes Status: Chronic (4) Stented coronary artery Current Visit: Yes Status: Chronic (5) HTN (hypertension) Current Visit: Yes Status: Chronic Qualifiers: Hypertension type: essential hypertension Qualified Code(s): I10 - Essential (primary) hypertension (6) Hyperlipemia Current Visit: Yes Status: Chronic (7) T2DM (type 2 diabetes mellitus) Current Visit: Yes Status: Chronic Qualifiers: Diabetes mellitus usp insulin use: unspecified rn long term care insulin 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 Subjective Date of service: 12/10/18 Principal diagnosis: HF Interval history: pt for stress test, no current cardiac complaints. c/o gout pain. Objective Last Vital Signs Temp 98.3 F 12/10/18 03:32 Pulse 67 12/10/18 08:09 Resp 20 12/10/18 03:32 BP 156/72 12/10/18 09:31 Pulse Ox 94 12/09/18 23:21 - Physical Examination General: No Apparent Distress HEENT: Positive: PERRL, Normocephaly, Mucus Membranes Moist Neck: Positive: neck supple, trachea midline Cardiac: Positive: Reg Rate and Rhythm, S1/S2 Lungs: Positive: Decreased Breath Sounds Neuro: Positive: Grossly Intact Abdomen: Positive: Soft. Negative: Tender Skin: Negative: Rash Musculoskeletal: No Pain Extremities: Present: edema (trace BLE) - Labs and Meds Comprehensive Metabolic Panel 12/10/18 Range/Units 04:56 Sodium 135 L (137-145) mmol/L Potassium 3.5 L (3.6-5.0) mmol/L Chloride 93.0 L (98-107) mmol/L Carbon Dioxide 28 (22-30) mmol/L BUN 49 H (7-17) mg/dL Creatinine 1.3 H (0.7-1.2) mg/dL Glucose 308 H (65-100) mg/dL Calcium 8.5 (8.4-10.2) mg/dL - Imaging and Cardiology EKG: report reviewed, image reviewed Echo: report reviewed (02/2018 showed normal LV function, no significant abnormalities. ) Cardiac cath: report reviewed (08/2007 with PCI of RCA. ) - EKG Sinus rhythms and dysrhythmias: sinus rhythm
[2018-12-10] MEDS ORDERED: ZAROXOLYN PO SCH (12:00)
[2018-12-10] MEDS ORDERED: DEMADEX PO SCH (12:00)
[2018-12-10] MEDS: PEPCID PO SCH (12:35)
--- NOTE | 2018-12-10 12:58 | Discharge Summary ---
Providers - Providers Date of Admission: 12/09/18 11:41 Date of discharge: 12/10/18 Attending physician: MONTY WISDOM 12/08/18 17:59 Consult to Physician [CONS] Urgent Comment: Consulting Provider: ALAN SPICER Physician Instructions: Reason For Exam: cp dyspnea 12/09/18 06:58 Consult to Physician [CONS] Routine Comment: Consulting Provider: SHU CRONIN Physician Instructions: Reason For Exam: JANEE 12/10/18 07:32 Physical Therapy Evaluation and Treat [CONS] Routine Comment: Reason For Exam: placement [facility] Hospitalization Condition: Good Pertinent studies: CXR VQ scan Exercise stress test 2d echo Hospital course: brief history: 83-year-old female with a past medical history of CAD s/p PCI, HTN, HLP, DM, CKD, asthma, sleep apnea regularly followed in our office by Dr. Faye sent to the emergency room by her in house cra for left-sided chest pain, shortness of breath, for a few weeks. She reported about 1 week ago, she received one dose of IV lasix from her PCP and lost about 10 lbs but her symptoms persisted. She was then admitted for further evaluation and management. Previous work up: [facility] 08/2007 with PCI of RCA. Lexiscan MPI stress test done 09/2016 was negative. Echo done 02/2018 showed normal LV function, no significant abnormalities. Discharge diagnosis and management: / Acute exacerbation of CHF (congestive heart failure) with pEF placed on IV Lasix , monitored with Daily weights and I/O 's ECHO showed normal EF and diastolic function Cardiology consulted and recommended outpt followup / JANEE (acute kidney injury), vasomotor nephropathy Nephrolgy consulted, patient is also initiated on IV Lasix Monitored cr level, Cr stable on discharge, renal US was normal / Chest pain, likely musculoskeletal negative serial Troponins, Lexiscan in AM was normal, V/q scan was negative /Hypokalemia, repleted k /HTN (hypertension), Cont antihypertensives home dose / Peripheral neuropathy , cont Gabapentin / T2DM (type 2 diabetes mellitus) , Initiated on Lantus and Humalog AC, Hba1c 8.4 /Acute gout, started colchicine for a week, outpt followup / DVT prophylaxis: On Lovenox Physical exam; General appearance: Present: no acute distress, obese - EENT Eyes: PERRL, EOM intact ENT: hearing intact, clear oral mucosa Ears: bilateral: normal - Neck Neck: supple, normal ROM - Respiratory Respiratory effort: normal Respiratory: bilateral: CTA - Cardiovascular Rhythm: other (left chest wall tenderness) Heart Sounds: Present: S1 & S2. Absent: gallop, rub Extremities: pulses intact, No edema, normal color, Full ROM - Gastrointestinal General gastrointestinal: Present: soft, non-tender, non-distended, normal bowel sounds - Integumentary Integumentary: clear, warm, dry - Musculoskeletal Musculoskeletal: generalized weakness - Neurologic Neurologic: moves all extremities - Psychiatric Psychiatric: memory intact, appropriate mood/affect, intact judgment & insight Disposition: [id number] HOME UNDER HOME [facility] Time spent for discharge: 34 minutes Core Measure Documentation - Palliative Care Palliative Care/ Comfort Measures: Not Applicable - Core Measures Any of the following diagnoses?: history only Exam - Constitutional Vitals: Temp Pulse Resp BP Pulse Ox 98.3 F 67 20 156/72 94 12/10/18 03:32 12/10/18 08:09 12/10/18 12:38 12/10/18 09:31 12/09/18 23:21 Plan Activity: other (ambulate with walker) Weight Bearing Status: Non-Weight Bearing Diet: low fat, low salt, diabetic Special Instructions: restrict fluid intake to (1.2L daily) Durable Medical Equipment Needed Upon Discharge: Walker-Rolling [facility] SHAN[facility] [Primary Care Provider] - 3-5 Days ADRIANE FAYE MD [Staff Physician] - 7 Days Prescriptions: Colchicine 0.6 mg PO BID #14 capsule Potassium Chloride [K-Dur] 20 meq PO QDAY #30 tablet
[2018-12-10] MEDS ORDERED: COLCHICINE PO SCH (13:00)
[2018-12-10 13:02] VITALS: BP 159/69
[2018-12-10] MEDS: K-DUR PO SCH (13:52)
[2018-12-10] MEDS: LIDODERM 5% TD SCH (13:54)
[2018-12-10] MEDS: SODIUM CHLORIDE FLUSH SYRINGE 10 ML IV SCH (13:57)
[2018-12-10] MEDS: PULMICORT IH SCH ×2 (13:58→21:41)
[2018-12-10] MEDS: BROVANA NEBU IH SCH ×2 (13:58→21:41)
--- NOTE | 2018-12-10 14:47 | Treadmill Report ---
NUCLEAR STRESS TEST REFERRING PHYSICIAN: Hospitalist service. PROTOCOL: The patient was brought to the stress lab in a postabsorptive state, given 10 mCi of technetium at rest. The patient underwent rest imaging. The patient underwent Lexiscan stress test per standard protocol. At peak stress, the patient was given 32 mCi of technetium 99m. Shortly thereafter, the patient underwent stress imaging. Raw imaging reveals mild GI artifact. No significant motion artifact. SPECT imaging examined carefully in the horizontal long axis, vertical long axis, short axis views. There is normal homogenous uptake of radioisotope in all reported segments. No evidence of significant fixed or reversible perfusion defect suggestive of prior infarction or ischemia. Gated wall motion reveals normal systolic thickening, calculated ejection fraction 75%. No TID. CONCLUSIONS: 1. Normal myocardial perfusion scan without evidence of active ischemia or prior infarction. 2. Normal left ventricular systolic performance without evidence of transient ischemic dilatation or stress-induced segmental wall motion abnormalities. JOB# [id number] RUDDY/GINA
== END 2018-12-10 19:15 | disposition home health service (06) | DRG 682 ==
LOC: ED 16:16 → 4A 18:43 → OBSVTOIN 12-09 11:41
PROVIDERS: ADMIT Internal Medicine; ATTEND Internal Medicine
DX: N17.9 Acute kidney failure, unspecified (principal); I50.43 Acute on chronic combined systolic (congestive) and diastolic (congestive) heart failure; I13.0 Hypertensive heart and chronic kidney disease with heart failure and stage 1 through stage 4 chronic kidney disease, or unspecified chronic kidney disease; E87.6 Hypokalemia; E11.42 Type 2 diabetes mellitus with diabetic polyneuropathy; M10.9 Gout, unspecified; I25.10 Atherosclerotic heart disease of native coronary artery without angina pectoris; E78.5 Hyperlipidemia, unspecified; G47.30 Sleep apnea, unspecified; J45.909 Unspecified asthma, uncomplicated; N18.9 Chronic kidney disease, unspecified; F41.9 Anxiety disorder, unspecified; G89.29 Other chronic pain; M54.9 Dorsalgia, unspecified; E11.22 Type 2 diabetes mellitus with diabetic chronic kidney disease; Z95.5 Presence of coronary angioplasty implant and graft; Z88.5 Allergy status to narcotic agent; Z79.899 Other long term (current) drug therapy; Z86.73 Personal history of transient ischemic attack (TIA), and cerebral infarction without residual deficits; Z90.49 Acquired absence of other specified parts of digestive tract; Z98.51 Tubal ligation status
CPT/HCPCS: 36415; 71045; 76770; 78452; 78582; 80048; 80053; 81001; 82570; 82962; 83036; 83880; 84156; 84300; 84484; 85025; 85379; 85610; 85730; 93005; 93010; 93017; 93306; G0378; A9502; A9540; A9558; J1815; J1940; J1956; J2405; J2785

== ENCOUNTER 2022-01-14 20:12 | Inpatient (IN) | payer MEDICARE ==
[2022-01-14] MEDS ORDERED: ASPIRIN 325 MG TAB PO ONE (20:27)
--- NOTE | 2022-01-14 21:05 | XRay Report ---
CHEST 2 VIEWS INDICATION / CLINICAL INFORMATION: CHEST PAIN. COMPARISON: 12/08/2018 FINDINGS: SUPPORT DEVICES: None. HEART / MEDIASTINUM: Borderline cardiomegaly. LUNGS / PLEURA: There is pulmonary vascular congestion without overt interstitial pulmonary edema. Th e lungs are otherwise grossly clear. No pleural effusion or evidence of consolidation. No pneumothora x. ADDITIONAL FINDINGS: No significant additional findings. IMPRESSION: 1. Pulmonary vascular congestion. The appearance of the chest radiograph is grossly unchanged from Signer Name: Sanjana Marmolejo MD Signed: 01/14/2022 9:00 PM Workstation Name: [id number]
[2022-01-14 21:43] LABS: Basophils % (Auto) 0.5 % (0.0-1.8); Eosinophils # (Auto) 0.2 K/mm3 (0.0-0.4); Eosinophils % (Auto) 2.6 % (0.0-4.3); Hematocrit 42.8 % (30.3-42.9); Hemoglobin 13.9 gm/dl (10.1-14.3); Lymphocytes # (Auto) 3.1 K/mm3 (1.2-5.4); Lymphocytes % (Auto) 40.5 % (13.4-35.0); Mean Corpuscular HGB Conc 32 % (30-34); Mean Corpuscular Volume 93 fl (79-97); Monocytes # (Auto) 0.7 K/mm3 (0.0-0.8); Monocytes % (Auto) 9.5 % (0.0-7.3); Platelet Count 341 K/mm3 (140-440); Red Blood Count 4.59 M/mm3 (3.65-5.03); Red Cell Distribution Width 16.2 % (13.2-15.2)
[2022-01-14 22:06] LABS: Alanine Aminotransferase 13 units/L (7-56); Albumin 4.1 g/dL (3.9-5); BUN/Creatinine Ratio 30; Blood Urea Nitrogen 75 mg/dL (7-17); Calcium 9.1 mg/dL (8.4-10.2); Hemolysis Index 13
[2022-01-15] MEDS ORDERED: INSULIN GLARGINE 100 UNITS/ML SUB-Q ONE ×2 (00:35→12:52)
[2022-01-15] MEDS ORDERED: POTASSIUM CHLORIDE ER 20 MEQ TAB PO ONE (00:38)
[2022-01-15] MEDS ORDERED: POTASSIUM CHLORIDE 10 MEQ 10 MEQ/100 ML BAG IV ONE (00:39)
--- NOTE | 2022-01-15 00:52 | Emergency Department Report ---
ED Chest Pain HPI - General Chief Complaint: Chest Pain Stated Complaint: HEART BLOCKAGE & CONGESTIVE HEART FAILURE Time Seen by Provider: 01/15/22 00:18 Source: patient, family, old records reviewed Mode of arrival: Wheelchair Limitations: No Limitations - History of Present Illness Initial Comments: 86-year-old female with a past medical history of CAD s/p PCI, HTN, HLP, DM, gastroparesis, CKD, asthma, sleep apnea, and COPD with night as needed 2 L O2 use presents to the hospital with complaints of chest pain, shortness of breath, and leg edema. Patient apparently has chronic left-sided chest pressure and shortness of breath. 1 week ago on the her daughter in their home. Patient was assessed by EMS at the time until she had a "blockage in her heart" and declined to come to the hospital. Patient states that she has had worsening leg edema over the last several days despite compliance with her diuretics lisinopril and as needed metolazone. She denies PND. She is noncompliant with her CPAP use because she cannot sleep while using it. Patient also just received a alert on her continuous glucose monitor that her glucose is 177 and she needs her meds. She did not take her evening dose of Lantus (7 units twice daily) and did not take her evening dose of NovoLog (3 times daily sliding scale dosing with meals). She expresses concern that she needs tight control of her glucose because hyperglycemia exacerbates her gastroparesis. Felt Hanger: Dr. Mata Drill Press Set Up Operator Radial: Dr. Breaux Previous work up as per medical record: [facility] 08/2007 with PCI of RCA. stress test here on 11/2018 was negative. Echo here done 11/2018 showed EF of 55 to 60% - Related Data Home Medications Medication Instructions Recorded Confirmed Last Taken Cholecalciferol (Vitd3)/Vit K2 50,000 mg PO DAILY 12/09/18 12/09/18 12/08/18 19:00 Coreg 12.5 mg PO BID 12/09/18 12/09/18 12/08/18 19:00 Folic Acid 1 mg PO DAILY 12/09/18 12/09/18 12/08/18 19:00 Lantus 60 units QAM 12/09/18 12/09/18 12/08/18 18:00 Metolazone 5 mg PO BID 0412/09/18 12/08/18 19:00 Plavix 75 mg PO DAILY 12/09/18 12/09/18 12/08/18 19:00 Potassium 20 mg PO DAILY 12/09/18 12/09/18 12/08/18 19:00 Procardia Xl 30 mg PO DAILY 12/09/18 12/09/18 12/08/18 20:00 Symbicort 80-4.5 Mcg Inhaler 2 inhalation PO BID 12/09/18 12/09/18 12/08/18 20:00 Torsemide 20 mg PO BID 12/09/18 12/09/18 12/08/18 21:00 Trelegy Ellipta 100-62.5-25 2 mg PO DAILY 12/09/18 12/09/18 12/08/18 21:00 Previous Rx's Medication Instructions Recorded Last Taken Type Colchicine 0.6 mg PO BID #14 capsule 12/10/18 Unknown Rx Potassium Chloride [K-Dur] 20 meq PO QDAY #30 tablet 12/10/18 Unknown Rx Allergies Allergy/AdvReac Type Severity Reaction Status Date / Time hydrocodone AdvReac Vomiting Verified 12/08/18 16:23 Heart Score - HEART Score History: Moderately suspicious EKG: Non-specific Age: > 65 Risk factors: > 3 risk factors or hx of atherosclerotic disease Troponin: < normal limit HEART Score: 6 - EKG Read Time Time EKG Completed: 20:33 EKG Read Time: 20:37 ED Review of Systems ROS: Stated complaint: HEART BLOCKAGE & CONGESTIVE HEART FAILURE Other details as noted in HPI ED Past Medical Hx - Past Medical History Hx Hypertension: Yes Hx CVA: Yes Hx Diabetes: Yes Hx Renal Disease: Yes Hx Asthma: Yes - Surgical History Hx Coronary Stent: Yes (x4) Hx Cholecystectomy: Yes Additional Surgical History: polps in throat, breast reduction, tubiligation - Social History Smoking Status: Never Smoker Substance Use Type: None - Medications Home Medications: Home Medications Medication Instructions Recorded Confirmed Last Taken Type Cholecalciferol (Vitd3)/Vit K2 50,000 mg PO DAILY 12/09/18 12/09/18 12/08/18 19:00 History Coreg 12.5 mg PO BID 12/09/18 12/09/18 12/08/18 19:00 History Folic Acid 1 mg PO DAILY 12/09/18 12/09/1819 19:00 History Lantus 60 units QAM 12/09/18 12/09/18 12/08/18 18:00 History Metolazone 5 mg PO BID 12/09/18 12/09/18 12/08/18 19:00 History Plavix 75 mg PO DAILY 12/09/18 12/09/18 12/08/18 19:00 History Potassium 20 mg PO DAILY 12/09/18 12/09/18 12/08/18 19:00 History Procardia Xl 30 mg PO DAILY 12/09/18 12/09/18 12/08/18 20:00 History Symbicort 80-4.5 Mcg Inhaler 2 inhalation PO BID 12/09/18 12/09/18 12/08/18 20:00 History Torsemide 20 mg PO BID 12/09/18 12/09/18 12/08/18 21:00 History Trelegy Ellipta 100-62.5-25 2 mg PO DAILY 12/09/18 12/09/18 12/08/18 21:00 History Colchicine 0.6 mg PO BID #14 capsule 12/10/18 Unknown Rx Potassium Chloride [K-Dur] 20 meq PO QDAY #30 tablet 12/10/18 Unknown Rx ED Physical Exam - General Limitations: No Limitations - Other Other exam information: General: No acute distress Head: Atraumatic Eyes: normal appearance ENT: Moist mucous membranes Neck: Normal appearance, no midline tenderness Chest: Clear to auscultation bilaterally CV: Regular rate and rhythm Abdomen: Soft, normal bowel sounds, nontender, nondistended, no rebound or guarding Back: Normal inspection Extremity: Mild lower extremity edema bilaterally, no calf tenderness or leg asymmetry Neuro: Alert O x 3, no facial asymmetry, speech clear, no gross motor sensory deficit Psych: Appropriate behavior Skin: No rash ED Course Vital Signs 01/14/22 01/15/22 01/15/22 20:26 01:48 02:00 Temperature 98.0 F Pulse Rate 62 63 Respiratory 18 13 18 Rate Blood Pressure 149/81 146/53 O2 Sat by Pulse 100 100 Oximetry 01/15/22 01/15/22 01/15/22 02:16 02:30 02:50 Temperature Pulse Rate 65 46 L 70 Respiratory 16 14 16 Rate Blood Pressure 146/53 146/53 146/53 O2 Sat by Pulse 97 98 Oximetry 01/15/22 01/15/22 01/15/22 03:00 03:16 03:30 Temperature Pulse Rate 71 65 62 Respiratory 15 11 L 15 Rate Blood Pressure 159/67 159/67 159/67 O2 Sat by Pulse 100 99 100 Oximetry 01/15/22 01/15/22 01/15/22 03:46 04:00 04:16 Temperature Pulse Rate 74 78 79 Respiratory 18 21 22 Rate Blood Pressure 159/67 159/67 159/67 O2 Sat by Pulse 100 98 99 Oximetry 01/15/22 04:30 Temperature Pulse Rate 77 Respiratory 11 L Rate Blood Pressure 159/67 O2 Sat by Pulse 99 Oximetry EFRAIN score - Efrain Score Age > 65: (1) Yes Aspirin use within the Past 7 Days: (0) No 3 or more CAD Risk Factors: (1) Yes 2 or more Angina events in past 24 hrs: (0) No Known CAD with more than 50% Stenosis: (0) No Elevated Cardiac Markers: (0) No ST Deviation Greater than 0.5mm: (0) No EFRAIN Score: 2 ED Medical Decision Making - Lab Data Result diagrams: 01/14/22 21:10 01/15/22 03:15 Lab Results 01/14/22 01/14/22 Range/Units 21:10 21:10 WBC 7.7 (4.5-11.0) K/mm3 RBC 4.59 (3.65-5.03) M/mm3 Hgb 13.9 (10.1-14.3) gm/dl Hct 42.8 (30.3-42.9) % MCV 93 (79-97) fl MCH 30 (28-32) pg MCHC 32 (30-34) % RDW 16.2 H (13.2-15.2) % Plt Count 341 (140-440) K/mm3 Lymph % (Auto) 40.5 H (13.4-35.0) % [place] % (Auto) 9.5 H (0.0-7.3) % Eos % (Auto) 2.6 (0.0-4.3) % Baso % (Auto) 0.5 (0.0-1.8) % Lymph # (Auto) 3.1 (1.2-5.4) K/mm3 [place] # (Auto) 0.7 (0.0-0.8) K/mm3 Eos # (Auto) 0.2 (0.0-0.4) K/mm3 Baso # (Auto) 0.0 (0.0-0.1) K/mm3 Seg Neutrophils % 46.9 (40.0-70.0) % Seg Neutrophils # 3.6 (1.8-7.7) K/mm3 Sodium 140 (137-145) mmol/L Potassium 2.8 L* (3.6-5.0) mmol/L Chloride 94.8 L (98-107) mmol/L Carbon Dioxide 28 (22-30) mmol/L Anion Gap 20 mmol/L BUN 75 H (7-17) mg/dL Creatinine 2.5 H (0.6-1.2) mg/dL Estimated GFR 22 ml/min BUN/Creatinine Ratio 30 % Glucose 136 H (65-100) mg/dL Calcium 9.1 (8.4-10.2) mg/dL Total Bilirubin 0.20 (0.1-1.2) mg/dL AST 16 (5-40) units/L ALT 13 (7-56) units/L Alkaline Phosphatase 98 (35-129) units/L Troponin T < 0.010 (0.00-0.029) ng/mL Total Protein 7.2 (6.3-8.2) g/dL Albumin 4.1 (3.9-5) g/dL Albumin/Globulin Ratio 1.3 % - EKG Data -: EKG Interpreted by Me (Right bundle branch block) EKG shows normal: sinus rhythm, ST-T waves (No STEMI) - EKG Data When compared to previous EKG there are: no significant change - Radiology Data Radiology results: report reviewed CHEST 2 VIEWS INDICATION / CLINICAL INFORMATION: CHEST PAIN. COMPARISON: 12/08/2018 FINDINGS: SUPPORT DEVICES: None. HEART / MEDIASTINUM: Borderline cardiomegaly. LUNGS / PLEURA: There is pulmonary vascular congestion without overt interstitial pulmonary edema. The lungs are otherwise grossly clear. No pleural effusion or evidence of consolidation. No pneumothorax. ADDITIONAL FINDINGS: No significant additional findings. IMPRESSION: 1. Pulmonary vascular congestion. The appearance of the chest radiograph is grossly unchanged from 12/08/2018 - Medical Decision Making 86-year-old female with significant cardiac history and risk factors presents to the hospital complaining of ongoing left-sided chest pain, shortness of breath, and worsening leg edema despite medication compliance. Patient has a significant recent stressor given that her daughter . Patient's "blockage on EKG" appears to be a chronic right bundle branch block which is similar to previous. Patient has negative troponin despite chronic and multiple days of pain. Chest x-ray shows pulmonary vascular congestion and patient has mild lower extremity edema with signs of acute on chronic renal sufficiency significant hypokalemia. Patient received her evening dose of Lantus due to co ncerns of rising blood glucose. P.o. and IV potassium ordered for supplementation. Consult ordered with cardiology and her tomography technologist. Patient will be admitted to the hospitalist for further work-up and evaluation. Critical Care Time: No Critical care attestation.: If time is entered above; I have spent that time in minutes in the direct care of this critically ill patient, excluding procedure time. ED Disposition Clinical Impression: Chest pain, Acute on chronic renal insufficiency, Hypokalemia, Leg edema, Diabetes, Stented coronary artery, Acute exacerbation of CHF (congestive heart failure) Disposition: ADMITTED INPATIENT Is pt being admited?: Yes Condition: Stable Time of Disposition: 01:09 (Dr. Silverio/hospitalist)
[2022-01-15] MEDS ORDERED: SODIUM CHLORIDE 0.9% 500 ML 500 ML IV ONE (01:02)
[2022-01-15] MEDS ORDERED: traMADol 50 MG TAB PO PRN (03:05)
[2022-01-15] MEDS ORDERED: NITROGLYCERIN 0.4 MG TAB SUBL SL PRN (03:05)
[2022-01-15] MEDS ORDERED: ACETAMINOPHEN 325 MG TAB PO PRN (03:05)
[2022-01-15] MEDS ORDERED: DEXTROSE 50% IN WATER (25GM) 50 ML SYRINGE IV PRN (03:05)
[2022-01-15] MEDS ORDERED: MORPHINE 4 MG/1 ML INJ IV PRN (03:05)
--- NOTE | 2022-01-15 03:17 | History and Physical Report ---
History of Present Illness Date of examination: 01/15/22 Date of admission: 01/15/22 Chief complaint: Chest pain History of present illness: 86-year-old female with history of CAD, hypertension, diabetes, hyperlipidemia , status post PCI, gastroparesis, CKD, asthma, sleep apnea, and COPD with night as needed 2 L O2 was brought to the emergency room because of chest pain, shortness of breath, and leg edema. Patient apparently has chronic left-sided chest pressure and shortness of breath for last 1 week. 1 week ago on the her daughter in their home. Patient was assessed by EMS at the time until she had a "blockage in her heart" and declined to come to the hospital. Patient states that she has had worsening leg edema over the last several days despite compliance with her diuretics lisinopril and as needed metolazone. She denies PND. She is noncompliant with her CPAP use because she cannot sleep while using it. Patient also just received a alert on her continuous glucose monitor that her glucose is 177 and she needs her meds. She did not take her evening dose of Lantus (7 units twice daily) and did not take her evening dose of NovoLog (3 times daily sliding scale dosing with meals). She expresses concern that she needs tight control of her glucose because hyperglycemia exacerbates her gastroparesis. In the emergency room initial cardiac enzyme is negative troponin is 0.010. Also potassium is 2.8, BUN is 75 creatinine is 2.5, magnesium is 2.80 and glucose is 136. So we are going to admit the patient we will put the patient on chest pain pathway will do the serial cardiac enzyme aspirin 325 mg p.o. daily and consult cardiology as well as nephrology Past History Past Medical History: diabetes, hypertension, renal failure, stroke, other (Asthma) Past Surgical History: cholecystectomy (Cardiac a stent x4, polyps in the throat, breast reduction, tubal ligation) Social history: other (No smoking) Family history: diabetes, hypertension Medications and Allergies Allergies Allergy/AdvReac Type Severity Reaction Status Date / Time hydrocodone AdvReac Vomiting Verified 12/08/18 16:23 Home Medications Medication Instructions Recorded Confirmed Last Taken Type Cholecalciferol (Vitd3)/Vit K2 50,000 mg PO DAILY 12/09/18 12/09/18 12/08/18 19:00 History Coreg 12.5 mg PO BID 12/09/18 12/09/18 12/08/18 19:00 History Folic Acid 1 mg PO DAILY 12/09/18 12/09/18 12/08/18 19:00 History Lantus 60 units QAM 12/09/18 12/09/18 12/08/18 18:00 History Metolazone 5 mg PO BID 12/09/18 12/09/18 12/08/18 19:00 History Plavix 75 mg PO DAILY 12/09/18 12/09/18 12/08/18 19:00 History Potassium 20 mg PO DAILY 12/09/18 12/09/18 12/08/18 19:00 History Procardia Xl 30 mg PO DAILY 12/09/18 12/09/18 12/08/18 20:00 History Symbicort 80-4.5 Mcg Inhaler 2 inhalation PO BID 12/09/18 12/09/18 12/08/18 20:00 History Torsemide 20 mg PO BID 12/09/18 12/09/18 12/08/18 21:00 History Trelegy Ellipta 100-62.5-25 2 mg PO DAILY 12/09/18 12/09/18 12/08/18 21:00 History Colchicine 0.6 mg PO BID #14 capsule 12/10/18 Unknown Rx Potassium Chloride [K-Dur] 20 meq PO QDAY #30 tablet 12/10/18 Unknown Rx Active Meds: Active Medications Acetaminophen (Acetaminophen 325 Mg Tab) 650 mg PO Q6H PRN PRN Reason: Pain, Mild (1-3) Aspirin (Aspirin Ec 325 Mg Tab) 325 mg PO QDAY [facility] Atorvastatin Calcium (Atorvastatin 40 Mg Tab) 40 mg PO QHS [facility] Dextrose (Dextrose 50% In Water (25gm) 50 Ml Syringe) 50 ml IV Q30MIN PRN; Protocol PRN Reason: Hypoglycemia Heparin Sodium (Porcine) (Heparin 5,000 Unit/1 Ml Vial) 5,000 unit SUB-Q Q12HR [facility]RISTIAN Insulin Human Lispro (Insulin Lispro 100 Unit/Ml) 0 unit SUB-Q Q6HR [facility]RISTIAN; Protocol Miscellaneous Medication (Colchicine [Colchicine]) 0.6 mg PO BID [facility] Miscellaneous Medication (Coreg) 12.5 mg PO BID [facility] Miscellaneous Medication (Folic Acid) 1 mg PO DAILY [facility] Miscellaneous Medication (Metolazone) 5 mg PO BID [facility] Miscellaneous Medication (Plavix) 75 mg PO DAILY [facility] Miscellaneous Medication (Potassium) 20 mg PO DAILY [facility] Miscellaneous Medication (Procardia Xl) 30 mg PO DAILY [facility] Miscellaneous Medication (Symbicort 80-4.5 Mcg Inhaler) 2 inhalation PO BID [facility] Miscellaneous Medication (Torsemide) 20 mg PO BID [facility] Miscellaneous Medication (Trelegy Ellipta 100-62.5-25) 2 mg PO DAILY [facility] Morphine Sulfate (Morphine 4 Mg/1 Ml Inj) 2 mg IV Q5MIN PRN PRN Reason: Chest Pain unrelieved by NTG Nitroglycerin (Nitroglycerin 0.4 Mg Tab Subl) 0.4 mg SL Q5M PRN PRN Reason: Chest Pain Pantoprazole Sodium (Pantoprazole 40 Mg Tab) 40 mg PO QDAY [facility] Sodium Chloride (Sodium Chloride 0.9% 10 Ml Flush Syringe) 10 ml IV PRN PRN PRN Reason: LINE FLUSH Tramadol HCl (Tramadol 50 Mg Tab) 50 mg PO Q6H PRN PRN Reason: Pain, Moderate (4-6) Review of Systems All systems: negative Cardiovascular: chest pain, edema, shortness of breath, dyspnea on exertion Respiratory: shortness of breath, dyspnea on exertion Exam - Constitutional Vitals: Temp Pulse Resp BP Pulse Ox 98.0 F 65 16 146/53 97 01/14/22 20:26 01/15/22 02:16 01/15/22 02:16 01/15/22 02:16 01/15/22 02:16 General appearance: Present: no acute distress, well-nourished - EENT Eyes: Present: PERRL ENT: hearing intact, clear oral mucosa - Neck Neck: Present: supple, normal ROM - Respiratory Respiratory effort: normal Respiratory: bilateral: rales - Cardiovascular Heart Sounds: Present: S1 & S2. Absent: rub, click - Extremities Extremities: pulses symmetrical Extremity abnormal: edema Peripheral Pulses: within normal limits - Abdominal General gastrointestinal: Present: soft, non-tender, non-distended, normal bowel sounds Female genitourinary: Present: normal - Integumentary Integumentary: Present: clear, warm, dry - Musculoskeletal Musculoskeletal: gait normal, strength equal bilaterally - Psychiatric Psychiatric: appropriate mood/affect, intact judgment & insight - Neurologic Neurologic: CNII-XII intact, moves all extremities HEART Score - HEART Score Troponin: Troponin T < 0.010 ng/mL (0.00-0.029) 01/14/22 21:10 Results - Labs CBC & Chem 7: 01/14/22 21:10 01/14/22 21:10 Labs: Laboratory Last Values WBC 7.7 K/mm3 (4.5-11.0) 01/14/22 21:10 RBC 4.59 M/mm3 (3.65-5.03) 01/14/22 21:10 Hgb 13.9 gm/dl (10.1-14.3) 01/14/22 21:10 Hct 42.8 % (30.3-42.9) 01/14/22 21:10 MCV 93 fl (79-97) 01/14/22 21:10 MCH 30 pg (28-32) 01/14/22 21:10 MCHC 32 % (30-34) 01/14/22 21:10 RDW 16.2 % (13.2-15.2) H 01/14/22 21:10 Plt Count 341 K/mm3 (140-440) 01/14/22 21:10 Lymph % (Auto) 40.5 % (13.4-35.0) H 01/14/22 21:10 [place] % (Auto) 9.5 % (0.0-7.3) H 01/14/22 21:10 Eos % (Auto) 2.6 % (0.0-4.3) 01/14/22 21:10 Baso % (Auto) 0.5 % (0.0-1.8) 01/14/22 21:10 Lymph # (Auto) 3.1 K/mm3 (1.2-5.4) 01/14/22 21:10 [place] # (Auto) 0.7 K/mm3 (0.0-0.8) 01/14/22 21:10 Eos # (Auto) 0.2 K/mm3 (0.0-0.4) 01/14/22 21:10 Baso # (Auto) 0.0 K/mm3 (0.0-0.1) 01/14/22 21:10 Seg Neutrophils % 46.9 % (40.0-70.0) 01/14/22 21:10 Seg Neutrophils # 3.6 K/mm3 (1.8-7.7) 01/14/22 21:10 Sodium 140 mmol/L (137-145) 01/14/22 21:10 Potassium 2.8 mmol/L (3.6-5.0) L* 01/14/22 21:10 Chloride 94.8 mmol/L (98-107) L 01/14/22 21:10 Carbon Dioxide 28 mmol/L (22-30) 01/14/22 21:10 Anion Gap 20 mmol/L 01/14/22 21:10 BUN 75 mg/dL (7-17) H 01/14/22 21:10 Creatinine 2.5 mg/dL (0.6-1.2) H 01/14/22 21:10 Estimated GFR 22 ml/min 01/14/22 21:10 BUN/Creatinine Ratio 30 % 01/14/22 21:10 Glucose 136 mg/dL (65-100) H 01/14/22 21:10 Calcium 9.1 mg/dL (8.4-10.2) 01/14/22 21:10 Magnesium 2.80 mg/dL (1.7-2.3) H 01/14/22 00:00 Total Bilirubin 0.20 mg/dL (0.1-1.2) 01/14/22 21:10 AST 16 units/L (5-40) 01/14/22 21:10 ALT 13 units/L (7-56) 01/14/22 21:10 Alkaline Phosphatase 98 units/L (35-129) 01/14/22 21:10 Troponin T < 0.010 ng/mL (0.00-0.029) 01/14/22 21:10 Total Protein 7.2 g/dL (6.3-8.2) 01/14/22 21:10 Albumin 4.1 g/dL (3.9-5) 01/14/22 21:10 Albumin/Globulin Ratio 1.3 % 01/14/22 21:10 - Imaging and Cardiology Chest x-ray: report reviewed Assessment and Plan VTE prophylaxis?: Chemical Plan of care discussed with patient/family: Yes - Patient Problems (1) ACS (acute coronary syndrome) Current Visit: Yes Status: Acute Plan to address problem: Admit the patient to the medical telemetry. Aspirin 325 mg p.o. daily. Plavix 75 mg p.o. daily. Lipitor 40 mg p.o. daily. Nitroglycerin as needed. Due to the serial cardiac enzymes. Echocardiogram. Cardiology evaluation (2) Acute diastolic heart failure with preserved ejection fraction Current Visit: No Status: Acute Plan to address problem: Fluid restriction. Maintain input output. Daily weight. Metaxalone 5 mg p.o. twice daily. Torsemide 20 mg p.o. twice daily. Echocardiogram. Cardiology evaluation (3) Asthma Current Visit: No Status: Chronic Plan to address problem: Oxygen via nasal cannula 3 L/min. DuoNeb by nebulizer every 4 hours . Albuterol via nebulizer every 4 hours as needed (4) CAD (coronary artery disease) Current Visit: No Status: Chronic Plan to address problem: Aspirin 325 mg p.o. daily. Plavix 75 mg p.o. daily. Lipitor 40 mg p.o. daily. Nitroglycerin as needed. Due to the serial cardiac enzymes. Echocardiogram. Cardiology evaluation (5) CKD (chronic kidney disease) Current Visit: No Status: Chronic Plan to address problem: Avoid nephrotoxic drug. Renally dose medication. Acute on CKD probably secondary to diabetes, metolazone and torsemide. Will consult nephrology for evaluation. Recheck BMP in the morning (6) HTN (hypertension) Current Visit: No Status: Chronic Qualifiers: Hypertension type: essential hypertension Qualified Code(s): I10 - Essential (primary) hypertension Plan to address problem: Procardia XL 30 mg p.o. daily. Coreg 12.5 mg p.o. twice daily. We will monitor the blood pressure closely (7) Hyperlipemia Current Visit: No Status: Chronic Plan to address problem: Lipitor 40 mg p.o. daily. We will recheck the lipid panel (8) T2DM (type 2 diabetes mellitus) Current Visit: No Status: Chronic Qualifiers: Diabetes mellitus gin pole operator insulin use: unspecified half-way insulin use status Plan to address problem: Accu-Chek every 6 hours with Humalog moderate dose coverage. Diabetic education (9) CVA (cerebral vascular accident) Current Visit: Yes Status: Acute Plan to address problem: Stable. We will continue the home medication. (10) DVT prophylaxis Current Visit: No Status: Acute Plan to address problem: Heparin 5000 units subcu every 12 hours for DVT prophylaxis. Protonix 40 mg p.o. daily for GI prophylaxis. Patient is a full code
[2022-01-15] MEDS ORDERED: INSULIN LISPRO 100 UNIT/ML SUB-Q SCH (06:00)
[2022-01-15] MEDS ORDERED: TORSEMIDE 10 MG TAB PO SCH (06:00)
[2022-01-15] MEDS: BUDESONIDE 0.5 MG/2 ML NEBU IH SCH ×2 (08:45→19:51)
[2022-01-15] MEDS: ARFORMOTEROL 15 MCG/2 ML NEBU IH SCH ×2 (08:45→19:52)
--- NOTE | 2022-01-15 08:58 | Electrocardiograph Report ---
[facility] Test Date: 2022-01-14 Test Time: 20:33:44 Pat Name: ARLIN VEGA Department: Room: A472 1 Gender: F Acetylene Burner: LIDIA : [id number] Requested By: NIKOLE DUMONT Order Number: [id number] Reading MD: Jozef Arauz Measurements Intervals [place] Rate: 62 P: 31 MI: 155 QRS: 87 QRSD: 161 T: -1 QT: 493 QTc: 500 Interpretive Statements Sinus rhythm Right bundle branch block No previous ECG available for comparison Electronically Signed On 01-15-2022 8:57:49 EDT by Jozef Arauz
[2022-01-15 09:08] LABS: Basophils # (Auto) 0.1 K/mm3 (0.0-0.1); Basophils % (Auto) 0.9 % (0.0-1.8); Eosinophils # (Auto) 0.2 K/mm3 (0.0-0.4); Eosinophils % (Auto) 2.7 % (0.0-4.3); Hematocrit 42.9 % (30.3-42.9); Hemoglobin 14.3 gm/dl (10.1-14.3); Lymphocytes # (Auto) 3.1 K/mm3 (1.2-5.4); Lymphocytes % (Auto) 40.1 % (13.4-35.0); Mean Corpuscular HGB Conc 33 % (30-34); Mean Corpuscular Volume 92 fl (79-97); Monocytes # (Auto) 0.8 K/mm3 (0.0-0.8); Monocytes % (Auto) 9.7 % (0.0-7.3); Platelet Count 331 K/mm3 (140-440); Red Blood Count 4.66 M/mm3 (3.65-5.03); Red Cell Distribution Width 15.8 % (13.2-15.2)
--- NOTE | 2022-01-15 09:40 | Consultation ---
History of Present Illness - Reason for Consult Consult date: 01/15/22 acute renal failure - History of Present Illness Mrs. Batista is an 86yo with stage III CKD, CAD s/p PCI, DM, HTN and KASHMIR who presents to the ED with chest discomfort. She reports that on January 08, paramedics were called to her home (daughter at the home). An EKG was obtained and showed "a blockage". ED transport was reportedly advised but patient declined. She now presents to the hospital at the instruction of her PCP (Dr. Edouard) and unit director (Dr. Mata). She reports chest discomfort/pressure ongoing for a number of years - she denies worsening. She reports recent STALLWORTH and leg edema. Mrs. Batista reports that she has been taking Metolazone BID x 3 weeks in addition to BID loop diuretic. She reports chronic back pain but denies NSAID use. Mrs. Batista was last seen by Dr. Arora in Sep 2021. Labs at that time were notable for SCr 1.8mg/dL. Past History Past Medical History: diabetes, hypertension, renal failure, stroke, other (Asthma) Past Surgical History: cholecystectomy (Cardiac a stent x4, polyps in the throat, breast reduction, tubal ligation) Social history: other (No smoking) Family history: diabetes, hypertension Medications and Allergies Allergies Allergy/AdvReac Type Severity Reaction Status Date / Time insulin lispro Allergy Hives Verified 01/15/22 06:31 [From Humalog Mix] insulin lispro protamine Allergy Hives Verified 01/15/22 06:31 [From Humalog Mix] Penicillins Allergy Itching Verified 01/15/22 09:37 gabapentin AdvReac Unknown Verified 01/15/22 09:37 hydrocodone AdvReac Vomiting Verified 01/15/22 06:31 pregabalin [From Lyrica] AdvReac Unknown Verified 01/15/22 09:37 Home Medications Medication Instructions Recorded Confirmed Last Taken Type Cholecalciferol (Vitd3)/Vit K2 50,000 mg PO DAILY 12/09/18 12/09/18 12/08/18 19:00 History Coreg 12.5 mg PO BID 12/09/18 12/09/18 12/08/18 19:00 History Folic Acid 1 mg PO DAILY 12/09/18 12/09/18 12/08/18 19:00 History Lantus 60 units QAM 12/09/18 12/09/18 12/08/18 18:00 History Metolazone 5 mg PO BID 12/09/18 12/09/18 12/08/18 19:00 History Plavix 75 mg PO DAILY 12/09/18 12/09/18 12/08/18 19:00 History Potassium 20 mg PO DAILY 12/09/18 12/09/18 12/08/18 19:00 History Procardia Xl 30 mg PO DAILY 12/09/18 12/09/18 12/08/18 20:00 History Symbicort 80-4.5 Mcg Inhaler 2 inhalation PO BID 12/09/18 12/09/18 12/08/18 20:00 History Torsemide 20 mg PO BID 12/09/18 12/09/18 12/08/18 21:00 History Trelegy Ellipta 100-62.5-25 2 mg PO DAILY 12/09/18 12/09/18 12/08/18 21:00 History Colchicine 0.6 mg PO BID #14 capsule 12/10/18 Unknown Rx Potassium Chloride [K-Dur] 20 meq PO QDAY #30 tablet 12/10/18 Unknown Rx Active Meds: Active Medications Acetaminophen (Acetaminophen 325 Mg Tab) 650 mg PO Q6H PRN PRN Reason: Pain, Mild (1-3) Arformoterol Tartrate (Arformoterol 15 Mcg/2 Ml Nebu) 15 mcg IH Q12HRT [facility] Last Admin: 01/15/22 08:45 Dose: 15 mcg Aspirin (Aspirin Ec 325 Mg Tab) 325 mg PO QDAY [facility] Atorvastatin Calcium (Atorvastatin 40 Mg Tab) 40 mg PO QHS [facility] Budesonide (Budesonide 0.5 Mg/2 Ml Nebu) 0.5 mg IH Q12HRT [facility] Last Admin: 01/15/22 08:45 Dose: 0.5 mg Carvedilol (Carvedilol 12.5 Mg Tab) 12.5 mg PO BID [facility] Clopidogrel Bisulfate (Clopidogrel 75 Mg Tab) 75 mg PO DAILY [facility] Colchicine (Colchicine 0.6 Mg Tab) 0.3 mg PO QDAY [facility] Dextrose (Dextrose 50% In Water (25gm) 50 Ml Syringe) 50 ml IV Q30MIN PRN; Pro tocol PRN Reason: Hypoglycemia Folic Acid (Folic Acid 1 Mg Tab) 1 mg PO DAILY [facility] Heparin Sodium (Porcine) (Heparin 5,000 Unit/1 Ml Vial) 5,000 unit SUB-Q Q12HR [facility] Sodium Chloride (Nacl 0.9% 1000 Ml) 1,000 mls @ 75 mls/hr IV DIRECT [facility] Insulin Human Lispro (Insulin Lispro 100 Unit/Ml) 0 unit SUB-Q Q6HR [facility]; Protocol Metolazone (Metolazone 5 Mg Tab) 5 mg PO BID [facility] Miscellaneous Medication (Trelegy Ellipta 100-62.5-25) 2 mg PO DAILY [facility] Morphine Sulfate (Morphine 4 Mg/1 Ml Inj) 2 mg IV Q5MIN PRN PRN Reason: Chest Pain unrelieved by NTG Nifedipine (Nifedipine Xl 30 Mg Tab) 30 mg PO QDAY [facility] Nitroglycerin (Nitroglycerin 0.4 Mg Tab Subl) 0.4 mg SL Q5M PRN PRN Reason: Chest Pain Pantoprazole Sodium (Pantoprazole 40 Mg Tab) 40 mg PO QDAY [facility] Potassium Chloride (Potassium Chloride Er 20 Meq Tab) 20 meq PO QDAY [facility] Sodium Chloride (Sodium Chloride 0.9% 10 Ml Flush Syringe) 10 ml IV PRN PRN PRN Reason: LINE FLUSH Tiotropium Amigo (Tiotropium 18 Mcg Cap Inhalation) 1 puff IH Q24HRT [facility] Torsemide (Torsemide 10 Mg Tab) 20 mg PO BID@0600,1800 [facility] Last Admin: 01/15/22 06:56 Dose: 20 mg Tramadol HCl (Tramadol 50 Mg Tab) 50 mg PO Q6H PRN PRN Reason: Pain, Moderate (4-6) Review of Systems All systems: negative Exam - Vital Signs Vital signs: Vital Signs Temp Pulse Resp BP Pulse Ox 98.0 F 62 18 149/81 100 01/14/22 20:26 01/14/22 20:26 01/14/22 20:26 01/14/22 20:26 01/14/22 20:26 - General Appearance General appearance: well-developed, well-nourished EENT: ATNC Respiratory: Clear to Ascultation Heart: regular, S1S2 Gastrointestinal: Present: normal. Absent: tenderness, distended Integumentary: no rash, warm and dry Neurologic: alert and oriented x3 Musculoskeletal: Present: other (no edema) Psychiatric: cooperative Results - Lab Results 01/15/22 08:46 01/15/22 03:15 Most recent lab results Calcium 9.0 mg/dL (8.4-10.2) 01/15/22 03:15 Magnesium 2.80 mg/dL (1.7-2.3) H 01/14/22 00:00 Assessment and Plan Impression: * Acute kidney injury attributed to prerenal azotemia due to diuretics on stage III chronic kidney disease --Outpatient labs: SCr 1.8mg/dL - Aug 2021 * Atypical chest pain * Hypokalemia * Type II DM * Hypertension * KASHMIR Plan: * Renal function declined from baseline - likely due to diuretics as patient has been taking Metolazone BID (rx daily as needed) for the past 3 weeks * Hold Metolazone * Continue Torsemide * Obtain UA,UPCR and urine lytes * Replete lytes - note order for KCl * Continue conservative management * Dose medications for renal function * Avoid nephrotoxic agents * Maintain MAP>65 * AM labs
[2022-01-15] MEDS ORDERED: TORSEMIDE PO SCH (10:00)
[2022-01-15] MEDS ORDERED: SODIUM CHLORIDE 0.9% 1000 ML 1,000 ML IV SCH (10:00)
[2022-01-15] MEDS ORDERED: POTASSIUM PO SCH (10:00)
[2022-01-15] MEDS ORDERED: PLAVIX PO SCH (10:00)
[2022-01-15] MEDS ORDERED: FOLIC ACID PO SCH (10:00)
[2022-01-15] MEDS ORDERED: metOLazone 5 MG TAB PO SCH (10:00)
[2022-01-15] MEDS ORDERED: TRELEGY ELLIPTA PO SCH (10:00)
[2022-01-15] MEDS ORDERED: PROCARDIA PO SCH (10:00)
[2022-01-15] MEDS ORDERED: METOLAZONE PO SCH (10:00)
[2022-01-15] MEDS ORDERED: COREG PO SCH (10:00)
[2022-01-15] MEDS ORDERED: POTASSIUM CHLORIDE ER 20 MEQ TAB PO SCH (10:00)
[2022-01-15] MEDS ORDERED: COLCHICINE 0.6 MG PO SCH (10:00)
[2022-01-15] MEDS ORDERED: SYMBICORT PO SCH (10:00)
[2022-01-15] MEDS ORDERED: NIFEdipine XL 30 MG TAB PO SCH (10:00)
[2022-01-15] MEDS: TIOTROPIUM 18 MCG CAP INHALATION IH SCH (10:33)
[2022-01-15] MEDS: HEPARIN 5,000 UNIT/1 ML VIAL SUB-Q SCH ×2 (10:55→22:27)
[2022-01-15] MEDS: carvediloL 12.5 MG TAB PO SCH ×2 (10:55→22:26)
[2022-01-15] MEDS: FOLIC ACID 1 MG TAB PO SCH (10:55)
[2022-01-15] MEDS: CLOPIDOGREL 75 MG TAB PO SCH (10:56)
[2022-01-15] MEDS: PANTOPRAZOLE 40 MG TAB PO SCH (10:56)
--- NOTE | 2022-01-15 11:25 | Consultation ---
History of Present Illness Consult date: 01/15/22 Requesting physician: NIKOLE DUMONT Consult reason: chest pain History of present illness: Chief complaint: SOB, BLE swelling This is a 86-year-old female, who follows with Dr. Faye, wi th past medical history of CAD (status post PCI 2007), PAD, CHF, hypertension, chronic kidney disease II, chronic back pain, diabetes, hyperlipidemia, COPD, gastroparesis presented to [facility] yesterday with complaints of shortness of breath and bilateral lower extremity edema. She states this has been ongoing for several months, however has worsened over the last week. She states that last Saturday, her daughter suddenly while at home with her, and EMS was dispatched to the home and Ms. Batista was checked out and was found to have "heart blockage" on her EKG. She notified her PCP and farm agent who told her to come to the ED for evaluation. She reports she de layed presentation to ED due to not feeling that she could leave her home in light of recent events. She further describes a chronic left chest pain, ongoing intermittently for months, that she describes as pressure, rates it a 5/10, reproducible on palpation. Rest improves the pain, stress makes the pain worse. Also reports symptoms of PND. States she is compliant with her cardiac and sodium restricted diet. Reports compliance with medications. denies orthopnea, palpitations, syncope, nausea or vomiting. Cardiology is consulted for CP/SOB Past History Past Medical History: diabetes, hypertension, renal failure, stroke, other (Asthma) Past Surgical History: cholecystectomy (Cardiac a stent x4, polyps in the throat, breast reduction, tubal ligation) Social history: other (No smoking) Family history: diabetes, hypertension Medications and Allergies Allergies Allergy/AdvReac Type Severity Reaction Status Date / Time insulin lispro Allergy Hives Verified 01/15/22 06:31 [From Humalog Mix] insulin lispro protamine Allergy Hives Verified 01/15/22 06:31 [From Humalog Mix] Penicillins Allergy Itching Verified 01/15/22 09:37 gabapentin AdvReac Unknown Verified 01/15/22 09:37 hydrocodone AdvReac Vomiting Verified 01/15/22 06:31 pregabalin [From Lyrica] AdvReac Unknown Verified 01/15/22 09:37 Home Medications Medication Instructions Recorded Confirmed Last Taken Type Cholecalciferol (Vitd3)/Vit K2 50,000 mg PO DAILY 12/09/18 12/09/18 12/08/18 19:00 History Coreg 12.5 mg PO BID 12/09/18 12/09/18 12/08/18 19:00 History Folic Acid 1 mg PO DAILY 12/09/18 12/09/18 12/08/18 19:00 History Lantus 60 units QAM 12/09/18 12/09/18 12/08/18 18:00 History Metolazone 5 mg PO BID 12/09/18 12/09/18 12/08/18 19:00 History Plavix 75 mg PO DAILY 12/09/18 12/09/18 12/08/18 19:00 History Potassium 20 mg PO DAILY 12/09/18 12/09/18 12/08/18 19:00 History Procardia Xl 30 mg PO DAILY 12/09/18 12/09/18 12/08/18 20:00 History Symbicort 80-4.5 Mcg Inhaler 2 inhalation PO BID 12/09/18 12/09/18 12/08/18 20:00 History Torsemide 20 mg PO BID 12/09/18 12/09/18 12/08/18 21:00 History Trelegy Ellipta 100-62.5-25 2 mg PO DAILY 12/09/18 12/09/18 12/08/18 21:00 History Colchicine 0.6 mg PO BID #14 capsule 12/10/18 Unknown Rx Potassium Chloride [K-Dur] 20 meq PO QDAY #30 tablet 12/10/18 Unknown Rx Active Meds: Active Medications Acetaminophen (Acetaminophen 325 Mg Tab) 650 mg PO Q6H PRN PRN Reason: Pain, Mild (1-3) Arformoterol Tartrate (Arformoterol 15 Mcg/2 Ml Nebu) 15 mcg IH Q12HRT [facility] Last Admin: 01/15/22 08:45 Dose: 15 mcg Aspirin (Aspirin Ec 325 Mg Tab) 325 mg PO QDAY [facility] Atorvastatin Calcium (Atorvastatin 40 Mg Tab) 40 mg PO QHS [facility] Budesonide (Budesonide 0.5 Mg/2 Ml Nebu) 0.5 mg IH Q12HRT [facility] Last Admin: 01/15/22 08:45 Dose: 0.5 mg Carvedilol (Carvedilol 12.5 Mg Tab) 12.5 mg PO BID [facility] Last Admin: 01/15/22 10:55 Dose: 12.5 mg Clonidine HCl (Clonidine 0.1 Mg Tab) 0.1 mg PO Q12HR [facility] Clopidogrel Bisulfate (Clopidogrel 75 Mg Tab) 75 mg PO DAILY [facility] Last Admin: 01/15/22 10:56 Dose: 75 mg Colchicine (Colchicine 0.6 Mg Tab) 0.3 mg PO QDAY [facility] Dextrose (Dextrose 50% In Water (25gm) 50 Ml Syringe) 50 ml IV Q30MIN PRN; Protocol PRN Reason: Hypoglycemia Folic Acid (Folic Acid 1 Mg Tab) 1 mg PO DAILY [facility] Last Admin: 01/15/22 10:55 Dose: 1 mg Heparin Sodium (Porcine) (Heparin 5,000 Unit/1 Ml Vial) 5,000 unit SUB-Q Q12HR [facility] Last Admin: 01/15/22 10:55 Dose: 5,000 unit Sodium Chloride (Nacl 0.9% 1000 Ml) 1,000 mls @ 75 mls/hr IV DIRECT [facility] Last Admin: 01/15/22 10:53 Dose: 75 mls/hr Miscellaneous Medication (Trelegy Ellipta 100-62.5-25) 2 mg PO DAILY [facility] Morphine Sulfate (Morphine 4 Mg/1 Ml Inj) 2 mg IV Q5MIN PRN PRN Reason: Chest Pain unrelieved by NTG Nitroglycerin (Nitroglycerin 0.4 Mg Tab Subl) 0.4 mg SL Q5M PRN PRN Reason: Chest Pain Pantoprazole Sodium (Pantoprazole 40 Mg Tab) 40 mg PO QDAY [facility] [place] Last Admin: 01/15/22 10:56 Dose: 40 mg Potassium Chloride (Potassium Chloride Er 20 Meq Tab) 20 meq PO QDAY [facility] [place] Last Admin: 01/15/22 10:55 Dose: 20 meq Ranolazine (Ranolazine Er 500 Mg Tab 12hr) 500 mg PO BID [facility] Sodium Chloride (Sodium Chloride 0.9% 10 Ml Flush Syringe) 10 ml IV PRN PRN PRN Reason: LINE FLUSH Tiotropium [place] (Tiotropium 18 Mcg Cap Inhalation) 1 puff IH Q24HRT [facility] Last Admin: 01/15/22 10:33 Dose: Not Given Tramadol HCl (Tramadol 50 Mg Tab) 50 mg PO Q6H PRN PRN Reason: Pain, Moderate (4-6) Review of Systems All systems: negative Breasts: deferred Cardiovascular: chest pain, shortness of breath, dyspnea on exertion, paroxysmal nocturnal dyspnea, leg edema, no palpitations, no rapid/irregular heart beat, no syncope, no claudication Respiratory: sleep apnea, no cough Gastrointestinal: abdominal pain (RLQ) Physical Examination Vital Signs Vital Signs - 24 hr 01/14/22 01/15/22 01/15/22 20:26 01:00 01:48 Temperature 98.0 F Pulse Rate 62 Respiratory 18 13 Rate Blood Pressure 149/81 Blood Pressure [Right] O2 Sat by Pulse 100 98 Oximetry 01/15/22 01/15/22 01/15/22 02:00 02:16 02:30 Temperature Pulse Rate 63 65 46 L Respiratory 18 16 14 Rate Blood Pressure 146/53 146/53 146/53 Blood Pressure [Right] O2 Sat by Pulse 100 97 98 Oximetry 01/15/22 01/15/22 01/15/22 02:50 03:00 03:16 Temperature Pulse Rate 70 71 65 Respiratory 16 15 11 L Rate Blood Pressure 146/53 159/67 159/67 Blood Pressure [Right] O2 Sat by Pulse 100 99 Oximetry 01/15/22 01/15/22 01/15/22 03:30 03:46 04:00 Temperature Pulse Rate 62 74 78 Respiratory 15 18 21 Rate Blood Pressure 159/67 159/67 159/67 Blood Pressure [Right] O2 Sat by Pulse 100 100 98 Oximetry 01/15/22 01/15/22 01/15/22 04:16 04:30 08:20 Temperature Pulse Rate 79 77 87 Respiratory 22 11 L 20 Rate Blood Pressure 159/67 159/67 Blood Pressure 135/69 [Right] O2 Sat by Pulse 99 99 100 Oximetry 01/15/22 01/15/22 08:40 10:55 Temperature 98.1 F Pulse Rate 71 71 Respiratory 14 Rate Blood Pressure 150/67 150/67 Blood Pressure [Right] O2 Sat by Pulse 98 Oximetry General appearance: no acute distress, other (tearful from loss of daughter ) HEENT: Positive: Normocephaly Neck: Positive: trachea midline Cardiac: Positive: Reg Rate and Rhythm (with freq PACs, RBBB), S1/S2 Lungs: Positive: Decreased Breath Sounds Neuro: Positive: Grossly Intact Abdomen: Positive: Soft, Active Bowel Sounds Female genitourinary: deferred Skin: Negative: Rash Extremities: Present: +1 Edema Results 01/15/22 08:46 01/15/22 03:15 Cardiac Enzymes 01/14/22 Range/Units 21:10 AST 16 (5-40) units/L CBC 01/14/22 01/15/22 Range/Units 21:10 08:46 WBC 7.7 7.8 (4.5-11.0) K/mm3 RBC 4.59 4.66 (3.65-5.03) M/mm3 Hgb 13.9 14.3 (10.1-14.3) gm/dl Hct 42.8 42.9 (30.3-42.9) % Plt Count 341 331 (140-440) K/mm3 Lymph # (Auto) 3.1 3.1 (1.2-5.4) K/mm3 Casey # (Auto) 0.7 0.8 (0.0-0.8) K/mm3 Eos # (Auto) 0.2 0.2 (0.0-0.4) K/mm3 Baso # (Auto) 0.0 0.1 (0.0-0.1) K/mm3 Comprehensive Metabolic Panel 01/14/22 01/15/22 Range/Units 21:10 03:15 Sodium 140 138 (137-145) mmol/L Potassium 2.8 L* 3.1 L (3.6-5.0) mmol/L Chloride 94.8 L 95.2 L (98-107) mmol/L Carbon Dioxide 28 27 (22-30) mmol/L BUN 75 H 73 H (7-17) mg/dL Creatinine 2.5 H 2.3 H (0.6-1.2) mg/dL Glucose 136 H 175 H (65-100) mg/dL Calcium 9.1 9.0 (8.4-10.2) mg/dL AST 16 (5-40) units/L ALT 13 (7-56) units/L Alkaline Phosphatase 98 (35-129) units/L Total Protein 7.2 (6.3-8.2) g/dL Albumin 4.1 (3.9-5) g/dL - Imaging and Cardiology Echo: pending, report reviewed (previous 05/2021 55-60%) EKG: image reviewed (SR, RBBB, no acute ischemic changes) EKG interpretations - Telemetry EKG Rhythm: Sinus Rhythm AV and intraventricular conduction: right bundle branch block Repolarization changes or abnormalities: nonspecific abnormality, ST segment, and/or T wave Assessment and Plan Assessment: Chest Pain Acute on chronic HFpEF COPD JANEE on CKD HTN Hypokalemia H/o CAD with PCI (2007)- On Plavix (recently held x1 week for planned surgery which cancelled, so she is back on it) Diabetes Chronic back pain Cardiographics: EKG-sinus rhythm 62, with right bundle branch block. ST-T wave abnormalities. No significant change from previous. No acute ischemic changes Chest x-ray 01/14/22: Pulmonary vascular congestion. The appearance of chest radiograph is grossly unchanged from 12/08/2018 Echocardiogram-pending (05/2021 Ef 55-60%) (11/2018 Ef 55-60%) Stress test- pending 07/2020: Normal stress test. No evidence of significant infarction or ischemia. No wall motion abnormality. LVEF 50 to 70%. Cath: 10/10/2020 ([facility])-left main large and patent LAD proximal has a 50% lesion diagonal 1 is a small caliber vessel but long has diffuse disease with ostial 80 to 90% mid 80% of the 2 mm vessel mid LAD stent has a 10% in-stent restenosis the distal apical LAD has diffuse 90% lesion of the less than 2 mm vessel. Circumflex stent is patent with mild in-stent restenosis OM1 small caliber vesse l patent OM2 small caliber vessel with a 2 mm vessel has focal areas of 80 to 90%. RCA large dominant vessel proximal stent patent mid patent distal is ectatic aneurysmal has sluggish flow PDA PLV are medium caliber vessels are patent with normal LV function Recommendation: Small vessel disease, aggressive risk factor modification Recommendations/plan: Check Echocardiogram Check D-dimer Troponin negative x3 sets. BNP noted to be 805.6 on admission We will plan for stress test in the morning. N.p.o. after midnight Continue aspirin, statin, coreg 12.5, plavix, colchicine Patient with mild BLE; she does not appear grossly volume overloaded on exam. CXR with some pulmonary vascular congestion, unchanged from previous. We will discontinue torsemide. Will consider restarting Lasix 40 mg p.o. daily, as this is patient's home medication, if okay from renal standpoint. BMP in am. Patient presented hypokalemic with potassium 2.8. Improved to 3.1 Closely monitor renal function in the setting of JANEE on CKD. Nephrology following. Electrolyte replacement per nephrology. Optimize antihypertensive regimen -- of note, per review of records patient unable to tolerate Imdur, diltiazem, and nifedipine discontinued because of edema in lower extremities as OP and she was placed on clonidine for hypertension as well as Ranexa. Will dc nifedipine and restart home Clonidine 0.1 mg PO tab Q12 hours and Ranexa 500 mg PO BID. Thank you for this consultation, we will follow along. Patient seen in conjunction with Dr. Jenniffer Arauz who agrees with the assessment and management of this patient.
[2022-01-15] MEDS: COLCHICINE 0.6 MG TAB PO SCH (13:22)
[2022-01-15] MEDS: cloNIDine 0.1 MG TAB PO SCH ×2 (13:26→22:27)
[2022-01-15] MEDS: RANOLAZINE ER 500 MG TAB 12HR PO SCH ×2 (13:26→22:27)
--- NOTE | 2022-01-15 13:53 | Event Note ---
Date: 01/15/22 The patient was examined and found to to be hemodynamically stable. #CAD #Acute on chronic diastolic heart failure - Continue CHF exacerbation protocol: Telemetry, Strict I/O, monitor urine output every shift, daily weights, afterload reduction, low-sodium diet, and fluid restriction of approximately 1.5 mL/day - Supplemental oxygen: Room air - ProBNP on admission: 805.6 - Negative troponin x3 - Cardiology consulted; appreciate recs. Planning stress test for tomorrow morning. Patient will be n.p.o. at midnight. 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 Holding diuresis, DHRUV inhibitors/ARB, holding torsemide #Hyperlipidemia #Hypertension - home medications: Atorvastatin 40 mg daily, nifedipine 30 mg daily, Coreg 12.5 mg twice daily - current medications: Atorvastatin 40 mg daily, coreg 12.5mg daily, clonidine 0.1mg q12hrs and Ranexa 500mg BID - SBP goal <160 and DBP goal <90 while inpatient - continue to monitor #Insulin dependent type II diabetes mellitus with hyperglycemia #Gastroparesis - hemoglobin A1c: Unknown - home regimen: Lantus 7 units twice daily and aspart SSI - current regimen: Lantus 10 units twice daily - blood glucose goal 140-180 while inpatient - continue to monitor #Hypokalemia- improving - potassium 2.8-->3.1 - repleted. Continue to monitor #History of CVA Continue goal-directed therapy #Mild intermittent asthma - continue albuterol nebs prn #Obesity #Weight loss counseling #Exercise counseling - BMI 30.6 - Counseled patient on the importance of weight loss, incorporating exercise, and dietary changes (lean meats, fresh fruits and vegetables, and water intake). Patient expresses understanding. - Time: +15 min #Coordination of CARE time: 30 minutes. Total visit time equals 30 or more minutes with greater than 50% spent [id number] on coordination of care and counseling. #Advanced care planning -Disease education conducted, care plan discussed, diagnoses discussed, prognosis discussed, and patient acknowledges understanding with care plan -Time: +30 min
[2022-01-15] MEDS ORDERED: NON-FORMULARY EACH (Insulin Aspart [Insulin Aspart Flexpen] 100 UNIT/ML Insuln.Pen) SUB-Q SCH (17:40)
[2022-01-15] MEDS ORDERED: INSULN SQ ONE (17:41)
[2022-01-15] MEDS ORDERED: INSULIN ASPART 100 UNIT/ML SQ ONE (17:41)
[2022-01-15] MEDS ORDERED: ASPART SUB-Q ONE (17:41)
[2022-01-15] MEDS ORDERED: INSULN SQ NR (18:00)
[2022-01-15] MEDS ORDERED: INSULIN ASPART 100 UNIT/ML SQ NR (18:00)
[2022-01-15] MEDS: LOPERAMIDE 2 MG CAP PO PRN ×2 (19:01→23:16)
[2022-01-15] MEDS ORDERED: INSULIN GLARGINE 100 UNITS/ML SUB-Q SCH ×3 (22:00)
[2022-01-15] MEDS: CLINDAMYCIN 300 MG CAP PO SCH (22:26)
[2022-01-15] MEDS: INSULIN GLARGINE 100 UNITS/ML SUB-Q SCH (23:15)
[2022-01-15] MEDS: INSULN SQ SCH (23:41)
[2022-01-15] MEDS: INSULIN ASPART 100 UNIT/ML SQ SCH (23:41)
[2022-01-16 06:32] LABS: Calcium 8.8 mg/dL (8.4-10.2)
[2022-01-16] MEDS ORDERED: REGADENOSON 0.4 MG/5 ML INJ IV ONE ×2 (06:51→09:56)
[2022-01-16] MEDS: INSULN SQ SCH ×2 (08:14→12:13)
[2022-01-16] MEDS: INSULIN ASPART 100 UNIT/ML SQ SCH ×2 (08:14→12:13)
[2022-01-16] MEDS ORDERED: DEXTROSE 50% IN WATER (25GM) 50 ML SYRINGE IV PRN (08:31)
[2022-01-16] MEDS: BUDESONIDE 0.5 MG/2 ML NEBU IH SCH (09:19)
[2022-01-16] MEDS: ARFORMOTEROL 15 MCG/2 ML NEBU IH SCH (09:20)
--- NOTE | 2022-01-16 09:47 | XRay Report ---
CHEST 1 VIEW 01/16/2022 8:41 AM INDICATION / CLINICAL INFORMATION: Elevated d-dimer. COMPARISON: 01/14/22. FINDINGS: SUPPORT DEVICES: None. HEART / MEDIASTINUM: Borderline cardiomegaly is stable. Mild prominence of the central pulmonary vasc ulature has not changed. LUNGS / PLEURA: No significant pulmonary or pleural abnormality. No pneumothorax. ADDITIONAL FINDINGS: No significant additional findings. IMPRESSION: No significant interval change. Signer Name: Veto Rock MD Signed: 01/16/2022 9:43 AM Workstation Name: [id number]
[2022-01-16] MEDS ORDERED: ASPIRIN EC 325 MG TAB PO SCH ×2 (10:00)
[2022-01-16] MEDS ORDERED: ASPIRIN EC 81 MG TAB PO SCH (10:00)
--- NOTE | 2022-01-16 10:45 | Nuclear Medicine Report ---
NUCLEAR MEDICINE PERFUSION SCAN INDICATION: elevated d-dimer CORRELATION: AP chest performed earlier today RADIOPHARMACEUTICAL: Perfusion: 5.5 mCi Tc-99m MAA given IV FINDINGS: Perfusion images show symmetric and uniform radiotracer distribution throughout bilateral lung zones with no evidence of unmatched segmental perfusion defects. The cardiac silhouette is mildly enlarged. IMPRESSION: Low probability perfusion scan for pulmonary embolism. Signer Name: Skinny Taylor Jr, MD Signed: 01/16/2022 10:40 AM Workstation Name: [id number]
[2022-01-16] MEDS: TIOTROPIUM 18 MCG CAP INHALATION IH SCH (11:17)
[2022-01-16] MEDS ORDERED: INSULIN LISPRO 100 UNIT/ML SUB-Q SCH (11:30)
[2022-01-16] MEDS: carvediloL 12.5 MG TAB PO SCH (12:10)
[2022-01-16] MEDS: CLOPIDOGREL 75 MG TAB PO SCH ×2 (12:10→13:01)
[2022-01-16] MEDS: PANTOPRAZOLE 40 MG TAB PO SCH (12:11)
[2022-01-16] MEDS: INSULIN GLARGINE 100 UNITS/ML SUB-Q SCH (12:11)
[2022-01-16] MEDS: HEPARIN 5,000 UNIT/1 ML VIAL SUB-Q SCH (12:11)
[2022-01-16] MEDS: CLINDAMYCIN 300 MG CAP PO SCH (12:12)
[2022-01-16] MEDS: COLCHICINE 0.6 MG TAB PO SCH (12:12)
[2022-01-16] MEDS: FOLIC ACID 1 MG TAB PO SCH (12:12)
[2022-01-16] MEDS: cloNIDine 0.1 MG TAB PO SCH (12:13)
[2022-01-16] MEDS: RANOLAZINE ER 500 MG TAB 12HR PO SCH (12:13)
[2022-01-16] MEDS ORDERED: MOTEGRITY PO SCH (12:17)
[2022-01-16] MEDS ORDERED: INSULIN GLARGINE 100 UNITS/ML SUB-Q SCH (12:18)
--- NOTE | 2022-01-16 12:29 | Discharge Summary ---
Providers - Providers Date of Admission: 01/15/22 03:05 Date of discharge: 01/16/22 Attending physician: TASHI PICKETT MD 01/15/22 Consult to Cardiac Rehabilitation [CONS] Routine Reason For Exam: Phase I 01/15/22 01:07 Consult to Physician [CONS] Urgent Comment: Consulting Provider: WENDIE COLLINS Physician Instructions: Reason For Exam: cp, sob, cad 01/15/22 01:08 Consult to Physician [CONS] Urgent Comment: Consulting Provider: JAVIER ROSA Physician Instructions: Reason For Exam: acute on chronic renal failure, hypokalemia 01/15/22 03:05 Consult to Cardiology [CONS] Routine Consulting Provider: MANOJ ESQUEDA Reason For Exam: acs Consult to Dietitian/Nutrition [CONS] Routine Physician Instructions: Reason For Exam: Reason for Consult: Diet education 01/15/22 03:12 Consult to Physician [CONS] Routine Comment: Consulting Provider: SHU CRONIN Physician Instructions: Reason For Exam: bola Primary care physician: DOV LINK Hospitalization Reason for admission: chest pain, CHF exacerbation Condition: Stable Hospital course: 86-year-old female history of CAD, hypertension, diabetes and gastroparesis who presented with complaints of chest pain, shortness of breath and lower extremity edema. She was found to have a potassium of 2.8, creatinine 2.5. Her creatinine improved to 1.7. Cardiology and nephrology were consulted. Echocardiogram showed ejection fraction of 50 to 55% with mild diastolic dysfunction. D-dimer was elevated. V/Q scan showed low probability for pulmonary embolism. After diuresis patient clinically improved. She was discharged to follow-up with cardiology within the next few days. Disposition: 01 HOME / SELF CARE / HOMELESS Final Discharge Diagnosis (Prints w/discharge instructions): Acute kidney injury on chronic kidney disease secondary to vasomotor nephropathy. Acute on chronic heart failure with preserved ejection fraction. Chest pain. COPD. Hypokalemia. Hypertension. Type 2 diabetes. Gastroparesis. Coronary artery disease status post PCI Time spent for discharge: 30 minutes Core Measure Documentation - Palliative Care Palliative Care/ Comfort Measures: Not Applicable - Core Measures Any of the following diagnoses?: heart failure - Heart Failure Discharge Requirements DHRUV/ARB for LVSD if EF <40%: Not Applicable Beta edda at discharge: Yes Exam - Physical Exam Narrative exam: GENERAL: Well-developed well-nourished. In no acute distress. HEENT: Normocephalic. Atraumatic. NECK: Supple. CHEST/LUNGS: CTAB on room air HEART/CARDIOVASCULAR: RRR. No murmur, rubs or gallops appreciated. ABDOMEN: +BS. NT/ND. SKIN: No rashes noted. NEURO: No focal motor deficit. Follows all commands. EXTREMITIES: No cyanosis, clubbing or edema. PSYCH: Cooperative. - Constitutional Vitals: Temp Pulse Resp BP Pulse Ox 98.1 F 69 18 152/67 98 01/15/22 08:40 01/16/22 11:28 01/16/22 11:28 01/16/22 07:58 01/16/22 11:28 Plan Care Plan Goals: Please resume taking all medications as prescribed. Please schedule follow-up appointment with cardiology in the next few weeks. The VQ scan of your lungs showed low probability of a blood clot in the lungs. Please follow-up with your primary care provider and nephrology at discharge. Follow up with: DOV LINK JR, MD [Primary Care Provider] - 7 Days ALAN SPICER MD [Staff Physician] - 7 Days SHAYLA AUGUSTINE MD [Staff Physician] - 14 Days Prescriptions: AtorvaSTATin [Lipitor] 40 mg PO QHS 90 Days #90 tablet Aspirin EC [Halfprin EC] 81 mg PO QDAY 90 Days #90 tablet Furosemide [Lasix TAB] 40 mg PO DAILY 90 Days #90 tablet Ranolazine ER [Ranexa ER] 500 mg PO BID 90 Days #180 tablet
[2022-01-16] MEDS ORDERED: PANTOPRAZOLE 40 MG TAB PO SCH (13:00)
[2022-01-16] MEDS ORDERED: FUROSEMIDE 40 MG TAB PO SCH (13:00)
[2022-01-16 13:08] VITALS: BP 163/68
--- NOTE | 2022-01-16 14:29 | Progress Note ---
Assessment and Plan Assessment: Chest Pain Acute on chronic HFpEF COPD JANEE on CKD HTN Hypokalemia H/o CAD with PCI (2007)- On Plavix (recently held x1 week for planned surgery which cancelled, so she is back on it) Diabetes Gastroparesis Chronic back pain Cardiographics: EKG-sinus rhythm 62, with right bundle branch block. ST-T wave abnormalities. No significant change from previous. No acute ischemic changes Chest x-ray 01/14/22: Pulmonary vascular congestion. The appearance of chest radiograph is grossly unchanged from 12/08/2018 Echocardiogram 01/15/2022 Left ventricular systolic function is normal. The left ventricular ejection fraction is normal range. LVEF is 50-55%. Mild concentric left ventricular hypertrophy. Mild diastolic dysfunction is present. There is no pericardial effusion (05/2021 Ef 55-60%) (11/2018 Ef 55-60%) Stress test 07/2020: Normal stress test. No evidence of significant infarction or ischemia. No wall motion abnormality. LVEF 50 to 70%. Cath: 10/10/2020 ([facility])-left main large and patent LAD proximal has a 50% lesion diagonal 1 is a small caliber vessel but long has diffuse disease with ostial 80 to 90% mid 80% of the 2 mm vessel mid LAD stent has a 10% in-stent restenosis the distal apical LAD has diffuse 90% lesion of the less than 2 mm vessel. Circumflex stent is patent with mild in-stent restenosis OM1 small caliber vessel patent OM2 small caliber vessel with a 2 mm vessel has focal areas of 80 to 90%. RCA large dominant vessel proximal stent patent mid patent distal is ectatic aneurysmal has sluggish flow PDA PLV are medium caliber vessels are patent with normal LV function Recommendation: Small vessel disease, aggressive risk factor modification Recommendations/plan: Echo as above. D-Dimer 2908.37. Lung perfusion scan performed and there is low probability for PE. Troponin negative x3 sets. BNP noted to be 805.6 on admission. Patient is chest pain free and appears euvolemic today. Swelling improved. Continue aspirin, statin, coreg 12.5, plavix, colchicine, clonidine, ranexa and Lasix 40 mg p.o. daily. Renal function improving. Nephrology following. K 3.4 today. Renal to dose potassium replacement. Patient appears stable from Cardiac Standpoint for discharge home. Will need recheck BMP as OP. May consider stress test as OP if symptoms reoccur. Otherwise, stable. F/u visit with Dr. Mata on 01/19/2022 @ 10:45 in [place] location. Lab appt 01/17/2022 @ 10:15. Patient seen in conjunction with Dr. Jenniffer Arauz who agrees with the assessment and management of this patient. Subjective Date of service: 01/16/22 Principal diagnosis: SOB, Interval history: Patient seen and examined today at bedside. She states she is feeling much better than yesterday. She is chest pain-free. Have discussed elevated D-dimer results, and she will go for a lung perfusion scan today. Her bilateral lower extremity swelling has improved significantly. Appears euvolemic. Wants better glucose control while in hospital. Will d/w primary team. Update: lung perfusion scan with low probability for pulmonary embolism Telemetry: Sinus rhythm 64 Objective Vital Signs Pulse Pulse Pulse Resp Resp BP Pulse Ox 01/16/22 12:09 69 163/68 100 01/16/22 11:28 69 18 98 01/16/22 09:20 69 17 01/16/22 07:58 66 15 152/67 95 01/15/22 22:27 80 01/15/22 22:00 98 01/15/22 20:45 62 155/55 93 01/15/22 19:54 68 18 01/15/22 15:49 65 16 143/59 97 01/15/22 15:19 64 - Physical Examination General: Appears Well HEENT: Positive: Normocephaly Neck: Positive: trachea midline Cardiac: Positive: Reg Rate and Rhythm, S1/S2 Lungs: Positive: clear to auscultation. Negative: Rales, Wheezes Neuro: Positive: Grossly Intact Abdomen: Positive: Soft, Active Bowel Sounds Skin: Negative: Rash Extremities: Absent: edema - Labs and Meds Comprehensive Metabolic Panel 01/16/22 Range/Units 05:26 Sodium 139 (137-145) mmol/L Potassium 3.4 L (3.6-5.0) mmol/L Chloride 100.6 (98-107) mmol/L Carbon Dioxide 25 (22-30) mmol/L BUN 67 H (7-17) mg/dL Creatinine 1.7 H (0.6-1.2) mg/dL Glucose 225 H (65-100) mg/dL Calcium 8.8 (8.4-10.2) mg/dL - Imaging and Cardiology EKG: image reviewed (SR, RBBB, no acute ischemic changes) Echo: report reviewed (EF 50-55%) - Telemetry EKG Rhythm: Sinus Rhythm - EKG Sinus rhythms and dysrhythmias: sinus rhythm AV and intraventricular conduction: right bundle branch block Repolarization changes or abnormalities: nonspecific abnormality, ST segment, and/or T wave
[2022-01-16] MEDS ORDERED: POTASSIUM CHLORIDE ER 20 MEQ TAB PO ONE ×2 (14:43→16:00)
--- NOTE | 2022-01-17 12:06 | Electrocardiograph Report ---
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
--- NOTE | 2022-01-17 13:54 | Electrocardiograph Report ---
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
== END 2022-01-16 17:02 | disposition home or self-care (01) | DRG 682 ==
LOC: ED 20:12 → 4A 01-15 03:05
PROVIDERS: ADMIT Hospitalist; ATTEND Student in an Organized Health Care Education/Training Program
DX: N17.0 Acute kidney failure with tubular necrosis (principal); I50.31 Acute diastolic (congestive) heart failure; I24.9 Acute ischemic heart disease, unspecified; I11.0 Hypertensive heart disease with heart failure; I25.10 Atherosclerotic heart disease of native coronary artery without angina pectoris; E78.5 Hyperlipidemia, unspecified; J44.9 Chronic obstructive pulmonary disease, unspecified; N18.9 Chronic kidney disease, unspecified; E87.6 Hypokalemia; J45.909 Unspecified asthma, uncomplicated; N18.30 Chronic kidney disease, stage 3 unspecified; E11.65 Type 2 diabetes mellitus with hyperglycemia; E11.43 Type 2 diabetes mellitus with diabetic autonomic (poly)neuropathy; K31.84 Gastroparesis; Z90.49 Acquired absence of other specified parts of digestive tract; Z87.898 Personal history of other specified conditions; Z83.3 Family history of diabetes mellitus; Z82.49 Family history of ischemic heart disease and other diseases of the circulatory system
CPT/HCPCS: 36415; 71045; 71046; 78580; 80048; 80053; 82962; 83036; 83735; 83880; 84484; 85025; 85379; 93005; 93306; 94640; G0378; A9540; C8929; J1644; J1815; J2785; J3480; J7030; J7040